=== PATIENT | male | born 1955 | race Caucasian/White ===

== ENCOUNTER → 2018-05-15 07:00 | Outpatient (CLI) | payer OTHER, SELFPAY ==
[2018-05-15 07:41] LABS: Add Manual Diff / Slide Review NO; Eosinophils Percent Auto 4.8 % (2-4); Hematocrit 43.8 % (41-53); Lymphocytes Percent Auto 41.8 % (25-40); Mean Corpuscular HGB Conc 34.2 % (30-36); Mean Corpuscular Hemoglobin 30.2 PG (26-34); Mean Corpuscular Volume 88.3 fL (80-100); Neutrophils Absolute Auto 1800 /uL (3000-5900); Neutrophils Percent Auto 39.4 % (50-75); Platelet Count 145 X10^3/uL (150-400); Red Blood Cell Count 4.96 X10^6/uL (4.5-5.9); White Blood Cell Count 4.5 X10^3/uL (4.5-11.0)
[2018-05-15 07:53] LABS: Hemoglobin A1C% w Est Avg Glu 5.9 % (4.0-6.0)
[2018-05-15 07:57] LABS: Alanine Aminotransferase 32 IU/L (21-72); Albumin 4.3 g/dL (3.5-5.0); Albumin Globulin Ratio 1.5 (1.0-2.8); Alkaline Phosphatase 83 U/L (38-126); Aspartate Aminotransferase 25 IU/L (17-59); Bilirubin Total 0.8 mg/dL (0.2-1.3); Blood Urea Nitrogen 21 mg/dL (9-20); Calcium 9.4 mg/dL (8.4-10.2); Carbon Dioxide 26 mmol/L (22-32); Chloride 105 mmol/L (98-107); Cholesterol 155 mg/dL (140-199); Estimated Glomerular Filt Rate > 60.0 mL/min (>60); Globulin 2.9 g/dL (1.7-4.1); Glucose 105 mg/dL (80-110); HDL Cholesterol 30 mg/dL (40-60); HEMOLYSIS < 15 (0-50); LDL Cholesterol Calculated 81 mg/dL (<100); Potassium 4.1 mmol/L (3.4-5.1); Sodium 141 mmol/L (137-145); Total Protein 7.2 g/dL (6.3-8.2); Triglycerides 221 mg/dL (35-150)
[2018-05-15 08:25] LABS: Prostate Specific Antigen Scrn 0.648 ng/mL (0.1-4.0)
[2018-05-15 08:46] LABS: Creatinine Urine Random 106.8 mg/dL
[2018-05-15 08:53] LABS: Microalbumi Creatinin Ratio Ur 26.2 ug/mg CR (<30); Microalbumin Urine Random 2.8 mg/dL (0-1.6)
== END ==
PROVIDERS: Family Provider Internal Medicine; PCP Internal Medicine; Visit Provider Internal Medicine
DX: E78.5 Hyperlipidemia, unspecified (principal); E11.9 Type 2 diabetes mellitus without complications; I10 Essential (primary) hypertension; Z12.5 Encounter for screening for malignant neoplasm of prostate
CPT/HCPCS: 36415; 80053; 80061; 82043; 82570; 83036; 85025; G0103

== ENCOUNTER → 2018-06-19 06:58 | Outpatient (CLI) | payer OTHER, SELFPAY ==
--- NOTE | 2018-06-19 | DI.RAD.S_ITS ---
PROCEDURE: XR CHEST 2V INDICATIONS: pneumothorax (TINY) TECHNIQUE: 2 views of the chest were acquired. COMPARISON: [facility], , CHEST 2 VIEW, 07/30/2013, 9:51. FINDINGS: Surgical changes and devices: Permanent pacemaker has been revised since prior study. Lungs and pleura: No pleural effusions. Extremely small left apical pneumothorax. Expiratory film with expected bibasilar atelectasis. Mediastinum: Mediastinal contours are normal. Heart size is normal. Bones and chest wall: No suspicious bony abnormalities. Soft tissues appear unremarkable. IMPRESSION: 1.. Minimal left apical pneumothorax post pacemaker revision 2. Intentional expiratory image with bibasilar atelectasis Dictated by: New Saldivar M.D. on 06/19/2018 at 7:58 Approved by: New Saldivar M.D. on 06/19/2018 at 8:02
== END ==
PROVIDERS: Family Provider Internal Medicine; PCP Internal Medicine; Visit Provider Internal Medicine Cardiovascular Disease
DX: J93.9 Pneumothorax, unspecified (principal); J98.11 Atelectasis; Z95.0 Presence of cardiac pacemaker
CPT/HCPCS: 71046

== ENCOUNTER → 2018-08-01 14:00 | Outpatient (CLI) | payer OTHER, SELFPAY | PROVIDERS: Family Provider Internal Medicine; PCP Internal Medicine | DX: Z23 Encounter for immunization (principal) | CPT/HCPCS: 90471; 90686 ==

== ENCOUNTER → 2019-06-06 07:41 | Outpatient (CLI) | payer OTHER, SELFPAY ==
[2019-06-06 09:16] LABS: Hemoglobin A1C% w Est Avg Glu 6.2 % (4.0-6.0)
[2019-06-06 09:26] LABS: Microalbumi Creatinin Ratio Ur 31.6 ug/mg CR (<30); Microalbumin Urine Random 4.4 mg/dL (0-1.6)
[2019-06-06 09:33] LABS: Alanine Aminotransferase 31 IU/L (21-72); Albumin 4.2 g/dL (3.5-5.0); Albumin Globulin Ratio 1.6 (1.0-2.8); Alkaline Phosphatase 78 U/L (38-126); Aspartate Aminotransferase 24 IU/L (17-59); BUN Creatinine Ratio 28.6 (6-22); Bilirubin Total 0.9 mg/dL (0.2-1.3); Blood Urea Nitrogen 20 mg/dL (9-20); Calcium 9.4 mg/dL (8.4-10.2); Carbon Dioxide 25 mmol/L (22-32); Chloride 105 mmol/L (98-107); Cholesterol 169 mg/dL (140-199); Estimated Glomerular Filt Rate > 60.0 mL/min (>60); Globulin 2.7 g/dL (1.7-4.1); Glucose 119 mg/dL (80-110); HDL Cholesterol 30 mg/dL (40-60); HEMOLYSIS 18 (0-50); LDL Cholesterol Calculated 86 mg/dL (<100); Potassium 4.6 mmol/L (3.4-5.1); Sodium 139 mmol/L (137-145); Total Protein 6.9 g/dL (6.3-8.2); Triglycerides 267 mg/dL (35-150)
== END ==
PROVIDERS: PCP Internal Medicine; Visit Provider Internal Medicine
DX: E11.9 Type 2 diabetes mellitus without complications (principal); E78.5 Hyperlipidemia, unspecified; I10 Essential (primary) hypertension
CPT/HCPCS: 36415; 80053; 80061; 82043; 82570; 83036

== ENCOUNTER → 2019-08-20 18:48 | Outpatient (CLI) | payer OTHER, SELFPAY | PROVIDERS: PCP Internal Medicine | DX: Z23 Encounter for immunization (principal) | CPT/HCPCS: 90471; 90686 ==

== ENCOUNTER 2020-04-15 07:45 | Emergency (ER) | payer OTHER, SELFPAY ==
--- NOTE | 2020-04-15 07:52 | ED.GENADULT ---
HPI - General Adult General Chief complaint: Dizziness Stated complaint: Nausea & Dizziness Time Seen by Provider: 04/15/20 07:48 Source: patient Mode of arrival: EMS Limitations: no limitations History of Present Illness HPI narrative: Patient is a 64-year-old male. Has a a [employer] pacemaker in place for atrial fibrillation. Is on Coumadin. Here for evaluation of an episode this morning where he states that he woke up and very shortly afterwards had episode of what he describes as vertigo. He states the room was spinning. Was not having any other associated symptoms except for nausea. It did 1st occurred when he was lying in bed. Difficult time standing upper even moving. At the time of my evaluation here in the emergency department he states the symptoms have improved however not completely resolved. He has had vertigo in the past. He states that he had an episode of this when he was 1st diagnosed with his heart condition. EKG from EMS shows sinus rhythm without any ectopy. No interventions by EMS prior to arrival. Related Data Home Medications Medication Instructions Recorded Confirmed aspirin 81 mg PO QDAY #0 12/10/11 11/10/19 carvedilol phosphate [Coreg CR] 12.5 mg PO BID #0 12/10/11 11/10/19 VITAMIN D (Vitamin D3) 1,000 unit PO QDAY #0 02/14/13 11/10/19 pravastatin [Pravachol] 20 mg PO HS #0 02/14/13 11/10/19 ranitidine HCl [Zantac] 150 mg PO QDAY #0 tab 07/30/13 11/10/19 losartan 50 mg tablet 50 mg PO .qhs tab 11/10/19 11/10/19 warfarin 2.5 mg tablet 2.5 mg PO .COMPLEX 11/10/19 11/10/19 Previous Rx's Medication Instructions Recorded meclizine 25 mg PO TID PRN #14 tab 04/15/20 Allergies Allergy/AdvReac Type Severity Reaction Status Date / Time dabigatran etexilate Allergy Unknown Verified 04/15/20 08:02 [From PRADAXA] etomidate [ETOMIDATE] Allergy Unknown Verified 04/15/20 08:02 rivaroxaban [From XARELTO] Allergy Unknown Verified 04/15/20 08:02 hydrocodone [HYDROCODONE] AdvReac Mild VOMITING Verified 06/05/20 08:02 lisinopril [LISINOPRIL] AdvReac Mild COUGH Verified 04/15/20 08:02 Review of Systems Constitutional Constitutional: Denies fever(s) and Denies headache(s) Eyes Eyes: Denies change in vision ENT Ears, Nose, Mouth, and Throat: Reports vertigo, Reports dizziness, Denies headache(s), Reports disequilibrium, Denies sinus pain and Denies sore throat Cardiovascular Cardiovascular: Denies chest pain Respiratory Respiratory: Denies cough Gastrointestinal Gastrointestinal: Denies abdominal pain, Denies change in bowel habits, Denies diarrhea and Reports nausea Musculoskeletal Musculoskeletal: Denies tingling Comments: Left calf cramping Integumentary/Breasts Skin/Breast: Denies rash Neurologic Neurologic: Denies abnormal speech, Denies confusion, Reports vertigo, Reports dizziness, Denies headache(s), Denies tingling and Reports disequilibrium Psychiatric Psychiatric: Denies confusion Hematologic/Lymphatic Comments: On Coumadin Patient History Medical History Anticoagulated on Coumadin (Acute) Atrial fibrillation (Acute) Pacemaker (Acute) Social History Smoking Status: Former smoker Exam Initial Vital Signs Initial Vital Signs: Vital Signs Temperature 98.3 F 04/15/20 07:53 Pulse Rate 76 04/15/20 07:53 Respiratory Rate 18 04/15/20 07:53 Blood Pressure 168/90 H 04/15/20 07:53 Pulse Oximetry 98 04/15/20 07:53 Const General: cooperative, comfortable, well developed and well groomed Limitations: mental status not altered [facility] Head: normal to inspection and normocephalic Ears: TM's normal bilaterally Nose: external nose normal Eyes Pupils: PERRL EOM: EOM intact bilaterally Resp Effort & Inspection: normal respiratory effort Auscultation: clear to auscultation bilaterally Cardio Rate: regular rate Rhythm: regular rhythm GI Inspection: non-distended Skin Lesions: no lesions Rashes: no rashes Neuro General: patient alert, patient awake and patient oriented x3 Cranial Nerves: CN's II-XI intact bilaterally Cognition: normal cognition Speech: speech normal Sensory Exam: no sensory deficits noted Extrem General: normal to inspection and capillary refill normal Other: Muscle fullness felt left lateral calf when he describes a cramping sensation consistent with muscle spasm Psych Appearance: grossly normal and well kempt Scores GCS [place] coma scale eye opening: Spontaneous [place] coma scale verbal response: Orientated [place] coma scale motor response: Obey commands [place] coma scale total score: 15 Course Orders Ordered: ED Orders 04/15/20 07:46 EKG-12 Lead Stat 04/15/20 08:00 Complete Blood Count AUTO DIFF Stat Comprehensive Metabolic Panel Stat Lipase Stat Partial Thromboplastin Time Stat Prothrombin Time INR Stat Discontinued Medications Diazepam (Valium) 5 mg IV NOW ONE Stop: 04/15/20 08:07 Last Admin: 04/15/20 08:12 Dose: 2.5 mg Documented by: GRECIA Vital Signs Vital signs: Vital Signs - 8 hr 04/15/20 07:53 04/15/20 09:02 04/15/20 10:13 Temperature 98.3 F Pulse Rate 76 66 74 Respiratory Rate 18 14 14 Blood Pressure 168/90 H Blood Pressure [Left Arm] 143/86 H 147/75 H Pulse Oximetry 98 97 96 04/15/20 11:16 Temperature Pulse Rate 78 Respiratory Rate 14 Blood Pressure Blood Pressure [Left Arm] 147/91 H Pulse Oximetry 97 Medical Decision Making Medical Records Medical records reviewed: Yes I reviewed the patient's medical records. Lab Data Lab results reviewed: Yes I reviewed the patient's lab results. Result diagrams: 04/15/20 08:00 04/15/20 08:00 Labs: Lab Results 04/15/20 04/15/20 04/15/20 Range/Units 08:00 08:00 08:00 WBC 4.4 L (4.5-11.0) X10^3/uL RBC 4.94 (4.5-5.9) X10^6/uL Hgb 15.8 (13.5-17.5) g/dL Hct 44.4 (41-53) % MCV 90.0 (80-100) fL MCH 32.0 (26-34) PG MCHC 35.6 (30-36) % RDW 13.3 (11.6-14.8) % Plt Count 149 L (150-400) X10^3/uL Neut % (Auto) 44.2 L (50-75) % Lymph % (Auto) 33.3 (25-40) % [place] % (Auto) 18.7 H (3-14) % Eos % (Auto) 3.0 (2-4) % Baso % (Auto) 0.8 (0-2) % Neut # (Auto) 1900 (2549-1861) /uL Lymph # (Auto) 1500 (8079-2111) /uL [place] # (Auto) 800 (0-900) /uL Eos # (Auto) 100 (0-450) /uL Baso # (Auto) 0 (0-100) /uL PT 23.9 H (10.1-12.7) SECONDS INR 2.1 H (0.9-1.3) APTT 42 H (26.4-36.2) SECONDS Sodium 138 (137-145) mmol/L Potassium 4.2 (3.4-5.1) mmol/L Chloride 105 (98-107) mmol/L Carbon Dioxide 26 (22-32) mmol/L BUN 18 (9-20) mg/dL Creatinine 0.73 (0.66-1.25) mg/dL Estimated GFR > 60.0 (>60) mL/min BUN/Creatinine Ratio 24.7 H (6-22) Glucose 172 H (80-110) mg/dL Calcium 9.4 (8.4-10.2) mg/dL Total Bilirubin 0.6 (0.2-1.3) mg/dL AST 28 (17-59) IU/L ALT 33 (<50) IU/L Alkaline Phosphatase 111 (38-126) U/L Total Protein 7.4 (6.3-8.2) g/dL Albumin 4.4 (3.5-5.0) g/dL Globulin 3.0 (1.7-4.1) g/dL Albumin/Globulin Ratio 1.5 (1.0-2.8) Lipase 92 (23-300) U/L ECG Data Attestation: I personally reviewed and interpreted this ECG as follows: Prior ECG tracings: not available for review Interpretation: Ventricularly paced Rate is [address] T-wave changes consistent with ST-elevation [place] on MDM Narrative Medical decision making narrative: Patient had a normal neurologic exam other than a reproduction of his vertigo symptoms upon moving his head. Interrogation of his pacemaker shows no events today. I have low suspicion this is a cardiac event. I also have low suspicion that this is a CVA/TIA. Suspect peripheral vertigo. He improved after Valium. Was able to ambulate to the bathroom. Will have him follow-up with his primary provider. Will provide a prescription for meclizine for symptom treatment. He was given return precautions and follow-up instructions. He expressed understanding and agreement. Discharge Plan Departure Patient Disposition: Home Clinical Impression: Vertigo Instructions: DI for Vertigo Activity Restrictions/Additional Instructions: Recommend that you talk with your primary provider about further workup like we discussed. Take the medications as directed. Return to the emergency department for any new or worsening symptoms Prescriptions: New meclizine 25 mg tablet 25 mg PO TID PRN (Reason: dizziness or vertigo) Qty: 14 RF: 0 No Action losartan 50 mg tablet 50 mg PO .qhs RF: 0 warfarin [Coumadin] 2.5 mg tablet 2.5 mg PO .COMPLEX RF: 0 aspirin 81 MG tablet,delayed release (DR/EC) 81 mg PO QDAY Qty: 0 RF: 0 carvedilol phosphate [Coreg CR] 20 MG capsule, ER multiphase 24 hr 12.5 mg PO BID Qty: 0 RF: 0 pravastatin [Pravachol] 20 MG tablet 20 mg PO HS Qty: 0 RF: 0 VITAMIN D (Vitamin D3) 1,000 unit PO QDAY Qty: 0 RF: 0 ranitidine HCl [Zantac] 150 MG tablet 150 mg PO QDAY Qty: 0 RF: 0 Referrals: Jerson Stern MD [Primary Care Provider] -
[2020-04-15 07:53] VITALS: BP 168/90; PULSE 76; RESP 18; TEMP 36.8; O2SAT 98; BMI 27.7
[2020-04-15 08:07] LABS: Add Manual Diff / Slide Review NO; Basophils Absolute Auto 0 /uL (0-100); Basophils Percent Auto 0.8 % (0-2); Eosinophils Absolute Auto 100 /uL (0-450); Hematocrit 44.4 % (41-53); Hemoglobin 15.8 g/dL (13.5-17.5); Lymphocytes Absolute Auto 1500 /uL (1100-4500); Lymphocytes Percent Auto 33.3 % (25-40); Mean Corpuscular HGB Conc 35.6 % (30-36); Monocytes Absolute Auto 800 /uL (0-900); Monocytes Percent Auto 18.7 % (3-14); Neutrophils Absolute Auto 1900 /uL (1500-7000); Neutrophils Percent Auto 44.2 % (50-75); Platelet Count 149 X10^3/uL (150-400); Red Blood Cell Count 4.94 X10^6/uL (4.5-5.9); Red Cell Distribution Width 13.3 % (11.6-14.8); White Blood Cell Count 4.4 X10^3/uL (4.5-11.0)
[2020-04-15] MEDS: diazePAM 10 MG/2 ML SYRINGE 5 MG IV (08:12)
[2020-04-15 08:15] LABS: INR 2.1 (0.9-1.3); Prothrombin Time 23.9 SECONDS (10.1-12.7)
[2020-04-15 08:17] LABS: PTT Partial Thromboplastin Tim 42 SECONDS (26.4-36.2)
[2020-04-15 08:19] LABS: Alanine Aminotransferase 33 IU/L (<50); Albumin 4.4 g/dL (3.5-5.0); Albumin Globulin Ratio 1.5 (1.0-2.8); Alkaline Phosphatase 111 U/L (38-126); Aspartate Aminotransferase 28 IU/L (17-59); BUN Creatinine Ratio 24.7 (6-22); Bilirubin Total 0.6 mg/dL (0.2-1.3); Blood Urea Nitrogen 18 mg/dL (9-20); Calcium 9.4 mg/dL (8.4-10.2); Carbon Dioxide 26 mmol/L (22-32); Chloride 105 mmol/L (98-107); Estimated Glomerular Filt Rate > 60.0 mL/min (>60); Glucose 172 mg/dL (80-110); HEMOLYSIS < 15 (0-50); Lipase 92 U/L (23-300); Potassium 4.2 mmol/L (3.4-5.1); Sodium 138 mmol/L (137-145); Total Protein 7.4 g/dL (6.3-8.2)
--- NOTE | 2020-04-15 08:39 | PC.NURSE ---
patient reports vertigo and nausea subsiding. Valium appears to be taking effect. Patient states he just wants to sleep for a day.
[2020-04-15 09:02] VITALS: BP 143/86; PULSE 66; RESP 14; O2SAT 97
[2020-04-15 10:13] VITALS: BP 147/75; PULSE 74; RESP 14; O2SAT 96
[2020-04-15 11:16] VITALS: BP 147/91; PULSE 78; RESP 14; O2SAT 97
--- NOTE | 2020-04-15 11:26 | PC.NURSE ---
patient up to restroom after [employer] performed ambulation trial. Patient ambulating with steady gate. Patient walked over to me to verbalize ear symptoms he has had on and off for 6 months. He states there has been a popping noise in his right ear. Provider notified and acknowledged information.
[2020-04-15 11:45] VITALS: BP 151/85; PULSE 73; RESP 12; O2SAT 99
[2020-04-15 11:49] VITALS: BP 177/95; PULSE 79; RESP 17; O2SAT 96
--- NOTE | 2020-04-15 12:22 | PC.NURSE ---
additional vitals labeled with patient sticker and placed in chart.
== END 2020-04-15 12:25 | disposition home or self-care (01) ==
PROVIDERS: Emergency Provider Emergency Medicine; PCP Internal Medicine
DX: R42 Dizziness and giddiness (principal); R11.0 Nausea; I48.91 Unspecified atrial fibrillation; Z95.0 Presence of cardiac pacemaker; Z79.01 Long term (current) use of anticoagulants
CPT/HCPCS: 36415; 80053; 83690; 85025; 85610; 85730; 93005; 93010; 96374; 99284; J3360

== ENCOUNTER → 2020-08-16 | Outpatient (CLI) | payer OTHER, SELFPAY | PROVIDERS: PCP Internal Medicine; Referring Provider Internal Medicine; Visit Provider Internal Medicine | DX: Z23 Encounter for immunization (principal) | CPT/HCPCS: 90471; 90662 ==

== ENCOUNTER → 2020-11-16 08:38 | Outpatient (CLI) | payer OTHER, SELFPAY ==
[2020-11-16] MEDS: COVID-19 VACC(MODERNA-1)/PF 100 MCG/0.5 ML VIAL IM (08:43)
== END ==
PROVIDERS: PCP Internal Medicine; Visit Provider Internal Medicine
DX: Z23 Encounter for immunization (principal)
CPT/HCPCS: 0011A; 91301

== ENCOUNTER → 2020-12-14 08:08 | Outpatient (CLI) | payer OTHER, SELFPAY ==
[2020-12-14] MEDS: COVID-19 VACC #2, MRNA(MOD) 100 MCG/0.5 ML VIAL IM (08:16)
== END ==
PROVIDERS: PCP Internal Medicine; Visit Provider Internal Medicine
DX: Z23 Encounter for immunization (principal)
CPT/HCPCS: 0012A; 91301

== ENCOUNTER → 2021-01-25 10:50 | Outpatient (CLI) | payer OTHER, SELFPAY ==
[2021-01-25 11:59] LABS: COVID19 -Nasal RAPID Negative (Negative)
== END ==
PROVIDERS: PCP Internal Medicine; Visit Provider Family Medicine Sleep Medicine
DX: Z20.822 Contact with and (suspected) exposure to COVID-19 (principal); G47.33 Obstructive sleep apnea (adult) (pediatric)
CPT/HCPCS: 87635; 95810

== ENCOUNTER 2021-03-08 15:46 | Emergency (ER) | payer OTHER, SELFPAY ==
[2021-03-08 16:00] VITALS: BP 172/99; PULSE 83; RESP 16; TEMP 36.1; O2SAT 97; BMI 26.3
--- NOTE | 2021-03-08 16:11 | ED.HEATRA ---
HPI - Head Injury General Chief complaint: Head Injury Stated complaint: split lip, states INR 1.5 Time Seen by Provider: 03/08/21 16:00 Source: patient Mode of arrival: Ambulatory Limitations: no limitations History of Present Illness HPI Narrative: 65-year-old male nonsmoker with history of hypertension and atrial fibrillation on Coumadin presents with a chief complaint of an accidental face injury. Patient was working on an old vehicle at home and had taken and the lara off, when leaning down his face struck the exposed brackets and hinge to support the lara. He did not suffer any rapid deceleration or significant force to his head to suggest he is at risk for intracranial hemorrhage. He denies any loss of consciousness, nausea or vomiting. He denies any blurred vision, numbness or tingling. He has no neck or back pain. He has got a superficial abrasion just lateral to the left side of his nose and a deep laceration at the corner of his mouth. He is otherwise well and free of complaint. His tetanus will need to be updated MD Complaint: other Onset (ago): minute(s) Mechanism of Injury: other Place: home Loss of Consciousness: no Location of injury: face Severity: mild Radiation: none Other Injuries: none Context: on warfarin Associated symptoms: denies other symptoms Related Data Home Medications Medication Instructions Recorded Confirmed aspirin 81 mg PO QDAY #0 12/10/11 12/01/20 carvedilol phosphate [Coreg CR] 12.5 mg PO BID #0 12/10/11 12/01/20 VITAMIN D (Vitamin D3) 1,000 unit PO QDAY #0 02/14/13 11/10/19 pravastatin [Pravachol] 20 mg PO HS #0 02/14/13 12/01/20 losartan 50 mg tablet 50 mg PO .qhs tab 11/10/19 12/01/20 warfarin 2.5 mg tablet 2.5 mg PO .COMPLEX 11/10/19 12/01/20 acetaminophen 325 mg capsule 325 mg PO ONCE PRN 12/01/20 12/01/20 blood sugar diagnostic #10 ea 12/01/20 12/01/20 blood-glucose meter #1 ea 12/01/20 12/01/20 famotidine 20 mg tablet 20 mg PO BID 12/01/20 12/01/20 omega-3 fatty acids 1,000 mg 1,000 mg PO DAILY 12/01/20 12/01/20 capsule Previous Rx's Medication Instructions Recorded meclizine 25 mg PO TID PRN #14 tab 04/15/20 amoxicillin-pot clavulanate 1 tab PO BID #20 tab 03/08/21 [Augmentin] Allergies Allergy/AdvReac Type Severity Reaction Status Date / Time adhesive tape Allergy Mild Verified 03/08/21 16:00 ibuprofen Allergy Mild Verified 03/08/21 16:00 simvastatin [From Zocor] Allergy Mild Verified 03/08/21 16:00 dabigatran etexilate Allergy Unknown Verified 03/08/21 16:00 [From PRADAXA] etomidate [ETOMIDATE] Allergy Unknown Verified 03/08/21 16:00 rivaroxaban [From XARELTO] Allergy Unknown Verified 03/08/21 16:00 hydrocodone [HYDROCODONE] AdvReac Mild VOMITING Verified 03/08/21 16:00 lisinopril [LISINOPRIL] AdvReac Mild COUGH Verified 03/08/21 16:00 Review of Systems Constitutional Constitutional: Denies chills, Denies fatigue, Denies fever(s), Denies frequent falls, Denies lethargy and Denies weakness Eyes Eyes: Denies change in vision, Denies eye discharge, Denies irritation and Denies loss of vision ENT Ears, Nose, Mouth, and Throat: Denies change in voice, Denies dizziness, Denies neck pain, Denies sore throat and Denies throat swelling Cardiovascular Cardiovascular: Denies chest pain, Denies irregular heart rhythm, Denies lightheadedness, Denies palpitations, Denies dyspnea, Denies dyspnea on exertion and Denies orthopnea Respiratory Respiratory: Denies cough, Denies dyspnea, Denies dyspnea on exertion and Denies wheezing Gastrointestinal Gastrointestinal: Denies abdominal pain, Denies change in bowel habits, Denies diarrhea, Denies nausea and Denies vomiting Musculoskeletal Musculoskeletal: Denies neck pain and Denies numbness Integumentary/Breasts Skin/Breast: Denies pruritus, Denies erythema, Denies rash and Reports wounds Neurologic Neurologic: Denies behavioral changes, Denies confusion, Denies dizziness, Denies frequent falls, Denies loss of vision, Denies numbness and Denies weakness Psychiatric Psychiatric: Denies anxiety, Denies behavioral changes, Denies confusion, Denies depression, Denies homicidal ideation and Denies suicidal ideation Endocrine Endocrine: Denies fatigue, Denies flushing and Denies palpitations Hematologic/Lymphatic Hematologic/Lymphatic: Denies easy bruising Allergic/Immunologic Allergic/Immunologic: Denies urticaria, Denies throat swelling and Denies wheezing Patient History Medical History Anticoagulated on Coumadin Atrial fibrillation Pacemaker Family History Father Alcohol abuse Mother Restless leg Obesity Hypertension Heart disease Anxiety Family/Other Sleep apnea Restless leg Social History Smoking Status: Never smoker Smoking Status: Never smoker alcohol intake frequency: holidays/special occasions only Substance Use Type: does not use Exam Narrative Exam Narrative: GEN: AOx3 and in mild distress, GCS 15 HEAD: No pain, bruising or evidence of depressed skull fracture ENT: 1.5 cm laceration just lateral to the left corner of patient's mouth, near but not crossing the [place] border, no evidence of orbicularis involvement. No dental injury. Another laceration within the mouth just posterior and lateral to the upper molars noted with active bleeding. EYES: Pupils are equal, round, and reactive to light and accommodation. Extraoccular muscles are intact bilaterally. There is no subconjunctival hemorrhage or exudate. CHEST: Lungs are clear to auscultation bilaterally and free of wheezes, rales, or rhonchi. Heart rate is regular rhythm, there are no murmurs, clicks, rubs, or gallops. There is no chest wall tenderness. ABD: Abdomen is soft and nontender. There is no guarding or rebound. Bowel sounds are normal in all 4 quadrants. There is no mass or organomegaly. EXT: Full painless ROM of all extremities with no loss of sensation or strength. SKIN: Warm, pink, and dry. No erythema or rash Initial Vital Signs Initial Vital Signs: Vital Signs Temperature 96.9 F L 03/08/21 16:00 Pulse Rate 83 03/08/21 16:00 Respiratory Rate 16 03/08/21 16:00 Blood Pressure 172/99 H 03/08/21 16:00 Pulse Oximetry 97 03/08/21 16:00 Procedures Laceration Repair Laceration 1: Site: face Side (If applicable): left Size (cm): 1.5 Description: linear and clean Depth: simple, single layer Local Anesthetic: lidocaine 1% and with bicarb Amount of anesthesia used (mL): 2 Pre-repair: wound explored Skin layer closed with: nylon Size (cm): 6-0 Number of sutures: 4 Technique: simple, interrupted Subcutaneous layer closed with: vicryl Size: 5-0 Number of sutures: 1 Laceration 2: Site: other Side (If applicable): left Size (cm): 0.5 Description: linear Depth: simple, single layer Pre-repair: wound explored Skin layer closed with: vicryl Size (cm): 5-0 Number of sutures: 2 Technique: simple, interrupted Course Orders Ordered: Discontinued Medications Diphtheria/Tetanus/Acell Pertussis (Tet,Diph,Pertuss(Acell),Vac/Pf 0.5 Ml Syringe) 0.5 ml IM .ONCE ONE Stop: 03/08/21 16:40 Last Admin: 03/08/21 16:50 Dose: 0.5 ml Documented by: Lidocaine/Sodium Bicarbonate (Lido 1%/Sod Bicarb 8.4% (10ml) 10 Ml Syringe) 10 ml INJ NOW ONE Stop: 03/08/21 16:40 Last Admin: 03/08/21 16:53 Dose: 10 ml Documented by: Vital Signs Vital signs: Vital Signs - 8 hr 03/08/21 16:00 Temperature 96.9 F L Pulse Rate 83 Respiratory Rate 16 Blood Pressure 172/99 H Pulse Oximetry 97 MDM - Head Injury MDM Narrative Medical decision making narrative: Patient A&O x3, GCS 15, facial injury without significant force, head injury considered but thought unlikely. Discussed head CT with patient and we both sure the opinion that the mechanism is not sufficient to cause intracranial injury. Her blood pressure for this reason, CT avoided. He does have complex is laceration us near but not crossing the [place]mil[place] border and without now he evidence of muscle involvement. An intraoral injury has been repaired in hemostasis achieved. Extensive discussion regarding return precautions including also the potential of antibiotics to alter his INR in caused bleeding risk. Patient and have had questions answered to their apparent satisfaction and agree with and understand the plan Discharge Plan Departure Patient Disposition: Home Clinical Impression: Complex laceration of circumoral region of face Instructions: DI for Laceration Repair -- Complex Activity Restrictions/Additional Instructions: *You have been diagnosed with [complex circumoral laceration with intraoral involvement. He had 4 sutures placed in her lip and 2 dissolving sutures on the inside.] *What to do: *Take medications as directed. As we discussed, please hold your coumadin tonight and contact the coumadin clinic tomorrow as antibiotics run the risk of increasing your bleeding risk. * Please keep the wound clean and dry to the best of your ability. Please monitor for signs of infection such as redness to the skin or increasing pain. Have the sutures removed by your doctor in about 7 days. If you are unable to get into your doctor, we would be happy to remove the sutures in that same timeframe. *Return to ER if you should have any new, worsening or concerning symptoms, such as [ bleeding, pain, swelling, numbness, tingling, or other bothersome symptoms] Prescriptions: New amoxicillin-pot clavulanate [Augmentin] 875-125 mg tablet 1 tab PO BID Qty: 20 RF: 0 No Action losartan 50 mg tablet 50 mg PO .qhs RF: 0 warfarin [Coumadin] 2.5 mg tablet 2.5 mg PO .COMPLEX RF: 0 aspirin 81 MG tablet,delayed release (DR/EC) 81 mg PO QDAY Qty: 0 RF: 0 carvedilol phosphate [Coreg CR] 20 MG capsule, ER multiphase 24 hr 12.5 mg PO BID Qty: 0 RF: 0 pravastatin [Pravachol] 20 MG tablet 20 mg PO HS Qty: 0 RF: 0 VITAMIN D (Vitamin D3) 1,000 unit PO QDAY Qty: 0 RF: 0 meclizine 25 mg tablet 25 mg PO TID PRN (Reason: dizziness or vertigo) Qty: 14 RF: 0 acetaminophen 325 mg capsule 325 mg PO ONCE PRNRF: 0 (DME) blood-glucose meter [OneTouch Verio Flex meter] Misc See Rx Instructions .ROUTE .MEDSUPPLY Qty: 1 RF: 0 (DME) OneTouch Ultra Blue Test Strip Strip See Rx Instructions .ROUTE .MEDSUPPLY Qty: 10 RF: 0 famotidine 20 mg tablet 20 mg PO BID RF: 0 omega-3 fatty acids 1,000 mg capsule 1,000 mg PO DAILY RF: 0 Referrals: Jerson Stern MD [Primary Care Provider] -
[2021-03-08] MEDS: TET,DIPH,PERTUSS(ACELL),VAC/PF 0.5 ML SYRINGE IM (16:50)
[2021-03-08] MEDS: LIDO 1%/SOD BICARB 8.4% (10ML) 10 ML SYRINGE INJ (16:53)
--- NOTE | 2021-03-08 16:54 | PC.NURSE ---
Dr. Charlton at bedside for lidocaine administration and lac repair
[2021-03-08 17:45] VITALS: BP 143/82; PULSE 70; RESP 16; O2SAT 99
== END 2021-03-08 17:45 | disposition home or self-care (01) ==
PROVIDERS: Emergency Provider Emergency Medicine; PCP Internal Medicine
DX: S01.81XA Laceration without foreign body of other part of head, initial encounter (principal); W26.8XXA Contact with other sharp object(s), not elsewhere classified, initial encounter; Z23 Encounter for immunization
CPT/HCPCS: 12011; 90471; 99283; 90715

== ENCOUNTER → 2021-05-25 06:49 | Outpatient (CLI) | payer OTHER, SELFPAY ==
[2021-05-25 09:03] LABS: Hemoglobin A1C% w Est Avg Glu 6.7 % (4.0-6.0)
== END ==
PROVIDERS: PCP Internal Medicine; Referring Provider Internal Medicine; Visit Provider Internal Medicine
DX: E11.9 Type 2 diabetes mellitus without complications (principal)
CPT/HCPCS: 36415; 83036

== ENCOUNTER → 2021-07-13 10:49 | Outpatient (CLI) | payer OTHER, SELFPAY ==
[2021-07-13 12:00] LABS: BUN Creatinine Ratio 25.3 (6-22); Blood Urea Nitrogen 19 mg/dL (9-20); Calcium 9.3 mg/dL (8.4-10.2); Carbon Dioxide 25 mmol/L (22-32); Chloride 105 mmol/L (98-107); Estimated Glomerular Filt Rate > 60.0 mL/min (>60); Glucose 141 mg/dL (80-110); HEMOLYSIS 16 (0-50); Potassium 4.4 mmol/L (3.4-5.1); Sodium 138 mmol/L (137-145)
== END ==
PROVIDERS: PCP Internal Medicine; Referring Provider Internal Medicine Cardiovascular Disease; Visit Provider Internal Medicine Cardiovascular Disease
DX: I42.8 Other cardiomyopathies (principal); E11.9 Type 2 diabetes mellitus without complications
CPT/HCPCS: 36415; 80048; 83036

== ENCOUNTER → 2021-08-17 | Outpatient (CLI) | payer OTHER, SELFPAY | PROVIDERS: PCP Internal Medicine; Referring Provider Internal Medicine; Visit Provider Internal Medicine | DX: Z23 Encounter for immunization (principal) | CPT/HCPCS: 90471; 90662 ==

== ENCOUNTER → 2021-09-15 08:23 | Outpatient (CLI) | payer OTHER, SELFPAY ==
[2021-09-15] MEDS: COVID-19 VACC #3, MRNA(MOD) 50 MCG/0.25 ML VIAL IM (08:30)
== END ==
PROVIDERS: PCP Internal Medicine; Visit Provider Internal Medicine
DX: Z23 Encounter for immunization (principal)
CPT/HCPCS: 0013A; 91301

== ENCOUNTER → 2021-10-30 07:22 | Outpatient (CLI) | payer OTHER, SELFPAY ==
[2021-10-30 08:15] LABS: Cholesterol 179 mg/dL (140-199); HDL Cholesterol 34 mg/dL (40-60); LDL Cholesterol Calculated 106 mg/dL (<100); Triglycerides 195 mg/dL (35-150)
[2021-10-30 09:58] LABS: Creatinine Urine Random 170.5 mg/dL
[2021-10-30 10:03] LABS: Microalbumin Urine Random 8.2 mg/dL (0-1.6)
[2021-10-31 05:37] LABS: PSA, Total 0.6 ng/mL (0.0-4.0)
== END ==
PROVIDERS: PCP Internal Medicine; Referring Provider Internal Medicine; Visit Provider Internal Medicine
DX: E11.9 Type 2 diabetes mellitus without complications (principal); R35.0 Frequency of micturition
CPT/HCPCS: 36415; 80061; 82043; 82570; 84153; 84154

== ENCOUNTER 2022-03-20 12:38 | Emergency (ER) | payer OTHER, SELFPAY ==
[2022-03-20] VITALS (9 sets, daily range): BP systolic 123–136; BP diastolic 61–76; PULSE 90–98; RESP 18–24; TEMP 37.5; O2SAT 95–98; BMI 26.3
[2022-03-20 13:14] LABS: Alanine Aminotransferase 22 IU/L (<50); Albumin 4.6 g/dL (3.5-5.0); Albumin Globulin Ratio 1.4 (1.0-2.8); Alkaline Phosphatase 80 U/L (38-126); Aspartate Aminotransferase 25 IU/L (17-59); BUN Creatinine Ratio 20.9 (6-22); Bilirubin Total 1.7 mg/dL (0.2-1.3); Blood Urea Nitrogen 19 mg/dL (9-20); Calcium 9.2 mg/dL (8.4-10.2); Carbon Dioxide 27 mmol/L (22-32); Chloride 103 mmol/L (98-107); Estimated Glomerular Filt Rate > 60 mL/min (>60); Globulin 3.4 g/dL (1.7-4.1); Glucose 186 mg/dL (80-110); HEMOLYSIS 17 (0-50); Lipase 55 U/L (23-300); Potassium 3.7 mmol/L (3.4-5.1); Sodium 139 mmol/L (137-145)
[2022-03-20 13:15] LABS: Add Manual Diff / Slide Review NO; Basophils Absolute Auto 0 /uL (0-100); Basophils Percent Auto 0.2 % (0-2); Eosinophils Absolute Auto 0 /uL (0-450); Eosinophils Percent Auto 0.1 % (2-4); Hematocrit 43.7 % (41-53); Hemoglobin 14.6 g/dL (13.5-17.5); Lymphocytes Absolute Auto 900 /uL (1100-4500); Lymphocytes Percent Auto 5.9 % (25-40); Mean Corpuscular HGB Conc 33.3 % (30-36); Mean Corpuscular Hemoglobin 29.9 PG (26-34); Mean Corpuscular Volume 89.8 fL (80-100); Monocytes Absolute Auto 2900 /uL (0-900); Monocytes Percent Auto 19.4 % (3-14); Neutrophils Absolute Auto 11300 /uL (1500-7000); Neutrophils Percent Auto 74.4 % (50-75); Platelet Count 144 X10^3/uL (150-400); Red Blood Cell Count 4.87 X10^6/uL (4.5-5.9); Red Cell Distribution Width 14.1 % (11.6-14.8); White Blood Cell Count 15.2 X10^3/uL (4.5-11.0)
[2022-03-20 13:48] LABS: Bacteria Urine Moderate (10-30); Culture Indicated Urine Specimen Cultured; Ictotest Urine Negative (Negative); RBC Urine 5-10/HPF (0-5/HPF); Squamous Epithelial Cell Urine 1-5 /HPF (0-5/HPF); WBC Urine 30-100/HPF (0-5/HPF)
--- NOTE | 2022-03-20 13:50 | ED_ITS ---
HPI - Male Genitourinary <Jena Medrano [facility] - Last Filed: 03/20/22 15:55> General Chief complaint: Urogenital-Male Stated complaint: Urinary Symptoms Time Seen by Provider: 03/20/22 13:36 Source: patient and EMS Mode of arrival: EMS History of Present Illness HPI Narrative: This is a 66-year-old male with history of AFib on warfarin, currently V paced in sinus rhythm, diabetes type 2 with insulin dependence, hypertension, hyperlipidemia GERD, NIYA who presents to the emergency department by EMS for chief complaint of dysuria and pelvic pressure which he states started 2 nights ago. Patient states that today his pain was getting worse, felt fatigued, and he was having pelvic cramping. He denies a history of UTIs in the past, he states that his urine is alfred in color with an odor. Patient endorses fatigue, feeling poorly this morning his pain was shooting through his bladder, he states it felt like electrical pulses in his bladder. He states his urine gonsales when he voids, denies any testicular or rectal pain. Denies any swelling to his scrotum, abnormal discharge from his penis, or any new sexual contact. Related Data Home Medications Medication Instructions Recorded Confirmed aspirin 81 mg tablet,delayed 81 mg PO QDAY #0 12/10/11 12/01/20 release carvedilol phosphate 20 mg 12.5 mg PO BID #0 12/10/11 12/01/20 capsule,[id number] multiphase (Coreg CR) VITAMIN D (Vitamin D3) 1,000 unit PO QDAY #0 02/14/13 11/10/19 pravastatin 20 mg tablet 20 mg PO HS #0 02/14/13 12/01/20 (Pravachol) losartan 50 mg tablet 50 mg PO .qhs tab 11/10/19 12/01/20 warfarin 2.5 mg tablet (Coumadin) 2.5 mg PO .COMPLEX 11/10/19 12/01/20 acetaminophen 325 mg capsule 325 mg PO ONCE PRN 12/01/20 12/01/20 blood sugar diagnostic (OneTouch #10 ea 12/01/20 12/01/20 Ultra Blue Test Strip) blood-glucose meter (OneTouch #1 ea 12/01/20 12/01/20 Verio Flex meter) famotidine 20 mg tablet 20 mg PO BID 12/01/20 12/01/20 omega-3 fatty acids 1,000 mg 1,000 mg PO DAILY 12/01/20 12/01/20 capsule ResMed AirSense 10 Auto 01/10/22 01/10/22 Previous Rx's Medication Instructions Recorded meclizine 25 mg tablet 25 mg PO TID PRN #14 tab 04/15/20 phenazopyridine 100 mg tablet 100 mg PO TID PRN #7 tab 03/20/22 (Pyridium) sulfamethoxazole 800 1 tab PO BID 7 Days #14 tab 03/20/22 mg-trimethoprim 160 mg tablet Allergies Allergy/AdvReac Type Severity Reaction Status Date / Time adhesive tape Allergy Mild Verified 01/10/22 16:27 ibuprofen Allergy Mild Verified 01/10/22 16:27 simvastatin [From Zocor] Allergy Mild Verified 01/10/22 16:27 dabigatran etexilate Allergy Unknown Verified 01/10/22 16:27 [From PRADAXA] etomidate [ETOMIDATE] Allergy Unknown Verified 01/10/22 16:27 rivaroxaban [From XARELTO] Allergy Unknown Verified 01/10/22 16:27 hydrocodone [HYDROCODONE] AdvReac Mild VOMITING Verified 01/10/22 16:27 lisinopril [LISINOPRIL] AdvReac Mild COUGH Verified 01/10/22 16:27 Review of Systems <СЕРГЕЙ Dowd - Last Filed: 03/20/22 15:55> Review of Systems Narrative: General: denies fever, chills, malaise, sweats, fatigue Head/Neck: denies headache, neck pain, dizziness Eyes: denies visual changes, eye pain Cardio: denies chest pain, palpitations, edema Respiratory: denies dyspnea, cough GI: denies abdominal pain, nausea, vomiting, or diarrhea : Endorses dysuria with odor, alfred colored urine, denies urinary retention, or incontinence, endorses urinary frequency and urgency last night every 2 hours MSK: denies joint pain, muscle weakness Skin: denies rash, itching, skin lesions or other Neuro: denies numbness, tingling Patient History <СЕРГЕЙ Dowd - Last Filed: 03/20/22 15:55> Medical History Anticoagulated on Coumadin Atrial fibrillation Essential hypertension GERD (gastroesophageal reflux disease) 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 Hyperlipidemia Obstructive sleep apnea, adult Pacemaker Type 2 diabetes mellitus Family History Father Alcohol abuse Mother Restless leg Obesity Hypertension Heart disease Anxiety Family/Other Sleep apnea Restless leg Social History marital status: (to Linda) details: lives in [place] number of children: 2 (adult sons) household members: spouse lives independently: Yes housing: house education level: 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 General: Awake, alert, nontoxic, no cardiorespiratory distress Head/Neck: Atraumatic, neck full range of motion Eyes: EOMI, conjunctiva normal Nose: nares patent, no rhinorrhea Mouth/Throat: moist mucus membranes, no oral lesions Cardio: Regular rate and rhythm, V paced sinus rhythm without ectopy, S1-S2 without murmur, no peripheral edema, palpable radial pulse, 2+, warm extremities, no diaphoresis Respiratory: respirations unlabored without wheezing, stridor, or rales. No retractions or tachypnea GI: Abdomen soft, nontender to palpation, no CVA tenderness bilaterally MSK: Moves all extremities, neurovascularly intact Skin: Normal capillary refill, no rash Neuro: Normal speech and cognition, normal gait, alert and oriented x3, neuro exam without deficit Initial Vital Signs Initial Vital Signs: Vital Signs Temperature 99.5 F 03/20/22 12:40 Pulse Rate 92 H 03/20/22 12:40 Respiratory Rate 20 03/20/22 12:40 Blood Pressure 136/68 03/20/22 12:40 Pulse Oximetry 95 03/20/22 12:40 <Laura Das DO - Last Filed: 03/21/22 07:20> Initial Vital Signs Initial Vital Signs: Vital Signs Temperature 99.5 F 03/20/22 12:40 Pulse Rate 92 H 03/20/22 12:40 Respiratory Rate 20 03/20/22 12:40 Blood Pressure 136/68 03/20/22 12:40 Pulse Oximetry 95 03/20/22 12:40 Course <СЕРГЕЙ Dowd - Last Filed: 03/20/22 15:55> Orders Ordered: Discontinued Medications Acetaminophen (Acetaminophen 325 Mg Tablet) 975 mg PO NOW ONE Stop: 03/20/22 14:27 Last Admin: 03/20/22 15:53 Dose: Not Given Documented by: LUCITA Ceftriaxone Sodium 1,000 mg/ (Sodium Chloride) 100 mls @ 200 mls/hr IV NOW ONE Stop: 03/20/22 13:45 Last Infusion: 03/20/22 14:46 Dose: 0 mls/hr Documented by: Admin: 03/20/22 14:16 Dose: 200 mls/hr Documented by: LUCITA Sodium Chloride (Normal Saline 0.9%) 1,000 mls @ 1,000 mls/hr IV BOLUS ONE Stop: 03/20/22 14:51 Last Infusion: 03/20/22 16:04 Dose: 0 mls/hr Documented by: Admin: 03/20/22 14:16 Dose: 1,000 mls/hr Documented by: LUCITA Phenazopyridine HCl (Phenazopyridine 100 Mg Tablet) 100 mg PO NOW ONE Stop: 03/20/22 15:31 Last Admin: 03/20/22 15:53 Dose: Not Given Documented by: LUCITA Trimethoprim/Sulfamethoxazole (Trimeth/Sulfa 160/800 (Ds) Tablet) 1 tab PO NOW ONE Stop: 03/20/22 13:45 Last Admin: 03/20/22 14:22 Dose: Not Given Documented by: LUCITA Vital Signs Vital signs: Vital Signs - 8 hr 03/20/22 12:40 03/20/22 12:41 03/20/22 13:00 Temperature 99.5 F Pulse Rate 92 H 98 H 95 H Respiratory Rate 20 24 Blood Pressure 136/68 123/64 Pulse Oximetry 95 98 97 03/20/22 13:30 Temperature Pulse Rate 96 H Respiratory Rate 24 Blood Pressure 125/61 Pulse Oximetry 96 <Laura Das DO - Last Filed: 03/21/22 07:20> Orders Ordered: Discontinued Medications Acetaminophen (Acetaminophen 325 Mg Tablet) 975 mg PO NOW ONE Stop: 03/20/22 14:27 Last Admin: 03/20/22 15:53 Dose: Not Given Documented by: LUCITA Ceftriaxone Sodium 1,000 mg/ (Sodium Chloride) 100 mls @ 200 mls/hr IV NOW ONE Stop: 03/20/22 13:45 Last Infusion: 03/20/22 14:46 Dose: 0 mls/hr Documented by: Admin: 03/20/22 14:16 Dose: 200 mls/hr Documented by: LUCITA Sodium Chloride (Normal Saline 0.9%) 1,000 mls @ 1,000 mls/hr IV BOLUS ONE Stop: 03/20/22 14:51 Last Infusion: 03/20/22 16:04 Dose: 0 mls/hr Documented by: Admin: 03/20/22 14:16 Dose: 1,000 mls/hr Documented by: LUCITA Phenazopyridine HCl (Phenazopyridine 100 Mg Tablet) 100 mg PO NOW ONE Stop: 03/20/22 15:31 Last Admin: 03/20/22 15:53 Dose: Not Given Documented by: LUCITA Trimethoprim/Sulfamethoxazole (Trimeth/Sulfa 160/800 (Ds) Tablet) 1 tab PO NOW ONE Stop: 03/20/22 13:45 Last Admin: 03/20/22 14:22 Dose: Not Given Documented by: LUCITA Vital Signs Vital signs: Vital Signs - 8 hr 03/20/22 12:40 03/20/22 12:41 03/20/22 13:00 Temperature 99.5 F Pulse Rate 92 H 98 H 95 H Respiratory Rate 20 24 Blood Pressure 136/68 123/64 Pulse Oximetry 95 98 97 03/20/22 13:30 Temperature Pulse Rate 96 H Respiratory Rate 24 Blood Pressure 125/61 Pulse Oximetry 96 MDM - Male Genitourinary <СЕРГЕЙ Dowd - Last Filed: 03/20/22 15:55> Lab Data Result diagrams: 03/20/22 12:30 03/20/22 12:30 Labs: Lab Results 03/20/22 03/20/22 03/20/22 Range/Units 12:30 12:30 13:11 WBC 15.2 H (4.5-11.0) X10^3/uL RBC 4.87 (4.5-5.9) X10^6/uL Hgb 14.6 (13.5-17.5) g/dL Hct 43.7 (41-53) % MCV 89.8 (80-100) fL MCH 29.9 (26-34) PG MCHC 33.3 (30-36) % RDW 14.1 (11.6-14.8) % Plt Count 144 L (150-400) X10^3/uL Neut % (Auto) 74.4 (50-75) % Lymph % (Auto) 5.9 L (25-40) % Collier % (Auto) 19.4 H (3-14) % Eos % (Auto) 0.1 L (2-4) % Baso % (Auto) 0.2 (0-2) % Neut # (Auto) 13593 H (1443-8395) /uL Lymph # (Auto) 900 L (2288-6589) /uL Collier # (Auto) 2900 H (0-900) /uL Eos # (Auto) 0 (0-450) /uL Baso # (Auto) 0 (0-100) /uL Sodium 139 (137-145) mmol/L Potassium 3.7 (3.4-5.1) mmol/L Chloride 103 (98-107) mmol/L Carbon Dioxide 27 (22-32) mmol/L BUN 19 (9-20) mg/dL Creatinine 0.91 (0.66-1.25) mg/dL Estimated GFR > 60 (>60) mL/min BUN/Creatinine Ratio 20.9 (6-22) Glucose 186 H (80-110) mg/dL Lactate (0.7-2.1) mmol/L Calcium 9.2 (8.4-10.2) mg/dL Total Bilirubin 1.7 H (0.2-1.3) mg/dL AST 25 (17-59) IU/L ALT 22 (<50) IU/L Alkaline Phosphatase 80 (38-126) U/L Total Creatine Kinase 37 L (55-170) U/L CK-MB (CK-2) TNP CK-MB (CK-2) Rel Index TNP Troponin I < 0.012 (0.01-0.034) ng/mL Total Protein 8.0 (6.3-8.2) g/dL Albumin 4.6 (3.5-5.0) g/dL Globulin 3.4 (1.7-4.1) g/dL Albumin/Globulin Ratio 1.4 (1.0-2.8) Lipase 55 (23-300) U/L Procalcitonin 0.77 H (<0.5) ng/mL Ur Bilirubin Confirm (Negative) Urine RBC (0-5/HPF) Urine WBC (0-5/HPF) Ur Squamous Epith Cells (0-5/HPF) Urine Bacteria (None) Ur Culture Indicated? Ur Chlamydia DNA (PCR) N gonorrhoeae DNA (PCR) 03/20/22 03/20/22 03/20/22 Range/Units 13:11 13:14 13:14 WBC (4.5-11.0) X10^3/uL RBC (4.5-5.9) X10^6/uL Hgb (13.5-17.5) g/dL Hct (41-53) % MCV (80-100) fL MCH (26-34) PG MCHC (30-36) % RDW (11.6-14.8) % Plt Count (150-400) X10^3/uL Neut % (Auto) (50-75) % Lymph % (Auto) (25-40) % Collier % (Auto) (3-14) % Eos % (Auto) (2-4) % Baso % (Auto) (0-2) % Neut # (Auto) (4846-5756) /uL Lymph # (Auto) (5214-6247) /uL Collier # (Auto) (0-900) /uL Eos # (Auto) (0-450) /uL Baso # (Auto) (0-100) /uL Sodium (137-145) mmol/L Potassium (3.4-5.1) mmol/L Chloride (98-107) mmol/L Carbon Dioxide (22-32) mmol/L BUN (9-20) mg/dL Creatinine (0.66-1.25) mg/dL Estimated GFR (>60) mL/min BUN/Creatinine Ratio (6-22) Glucose (80-110) mg/dL Lactate 1.3 (0.7-2.1) mmol/L Calcium (8.4-10.2) mg/dL Total Bilirubin (0.2-1.3) mg/dL AST (17-59) IU/L ALT (<50) IU/L Alkaline Phosphatase (38-126) U/L Total Creatine Kinase (55-170) U/L CK-MB (CK-2) CK-MB (CK-2) Rel Index Troponin I (0.01-0.034) ng/mL Total Protein (6.3-8.2) g/dL Albumin (3.5-5.0) g/dL Globulin (1.7-4.1) g/dL Albumin/Globulin Ratio (1.0-2.8) Lipase (23-300) U/L Procalcitonin (<0.5) ng/mL Ur Bilirubin Confirm Negative (Negative) Urine RBC 5-10/hpf H (0-5/HPF) Urine WBC 30-100/hpf H (0-5/HPF) Ur Squamous Epith Cells 1-5 /hpf (0-5/HPF) Urine Bacteria Moderate (10-30) H (None) Ur Culture Indicated? Specimen cultured Ur Chlamydia DNA (PCR) N gonorrhoeae DNA (PCR) 03/20/22 Range/Units 13:14 WBC (4.5-11.0) X10^3/uL RBC (4.5-5.9) X10^6/uL Hgb (13.5-17.5) g/dL Hct (41-53) % MCV (80-100) fL MCH (26-34) PG MCHC (30-36) % RDW (11.6-14.8) % Plt Count (150-400) X10^3/uL Neut % (Auto) (50-75) % Lymph % (Auto) (25-40) % Collier % (Auto) (3-14) % Eos % (Auto) (2-4) % Baso % (Auto) (0-2) % Neut # (Auto) (3704-3259) /uL Lymph # (Auto) (3434-3905) /uL Collier # (Auto) (0-900) /uL Eos # (Auto) (0-450) /uL Baso # (Auto) (0-100) /uL Sodium (137-145) mmol/L Potassium (3.4-5.1) mmol/L Chloride (98-107) mmol/L Carbon Dioxide (22-32) mmol/L BUN (9-20) mg/dL Creatinine (0.66-1.25) mg/dL Estimated GFR (>60) mL/min BUN/Creatinine Ratio (6-22) Glucose (80-110) mg/dL Lactate (0.7-2.1) mmol/L Calcium (8.4-10.2) mg/dL Total Bilirubin (0.2-1.3) mg/dL AST (17-59) IU/L ALT (<50) IU/L Alkaline Phosphatase (38-126) U/L Total Creatine Kinase (55-170) U/L CK-MB (CK-2) CK-MB (CK-2) Rel Index Troponin I (0.01-0.034) ng/mL Total Protein (6.3-8.2) g/dL Albumin (3.5-5.0) g/dL Globulin (1.7-4.1) g/dL Albumin/Globulin Ratio (1.0-2.8) Lipase (23-300) U/L Procalcitonin (<0.5) ng/mL Ur Bilirubin Confirm (Negative) Urine RBC (0-5/HPF) Urine WBC (0-5/HPF) Ur Squamous Epith Cells (0-5/HPF) Urine Bacteria (None) Ur Culture Indicated? Ur Chlamydia DNA (PCR) Not detected N gonorrhoeae DNA (PCR) Not detected Urine Dip Bedside Urine Bilirubin + 1 Bedside Urine Ketone +/- 5 Urine Specific Molena 1.03 Bedside Urine Occult Blood +++ Bedside Urine pH 6 Bedside Urine Protein +/- 15 Bedside Urine Urobilinogen +/- 1mg Bedside Urine Nitrite + Positive Bedside Urine Leukocytes +/- 15 Esterase MDM Narrative Medical decision making narrative: This is a pleasant 66-year-old male with past medical history of diabetes type 2-insulin dependent, AFib on warfarin with pacemaker, V paced in sinus rhythm, NIYA, GERD, hypertension hyperlipidemia who presents to the emergency department by ambulance for dysuria, fatigue, urinary frequency and urgency which started 2 days ago. Patient states he was up every 2 hours with urinary frequency, his urine is alfred in color with a foul odor. Patient was found to have red blood cells, white blood cells, moderate bacteria in his bladder, procalcitonin of 0.77, CK of 37, troponin was negative, no elevation in AST, ALT, alk-phos, total bilirubin was elevated to 1.7 with baseline at 0.8. Glucose 186, creatinine 0.91 above his baseline of 0.75, leukocytosis of 15.2 with a left shift, neutrophils of 11,300, urine chlamydia and gonorrhea are negative PCR. No testicular pain or tenderness, urine and blood cultures are pending. Patient received a total of 2 L of normal saline which is approximately 30 cc/kilograms, his heart rate remains less than 100 beats per minute, he was given 1 g of ceftriaxone,, Tylenol, and he states his pain and symptoms are much improved from when he came in. Patient met sirs criteria but his lactate was 1.3. Patient is nontoxic appearing, does not have rigors or chills, states comfortable discharging home and returning for any worsening of his symptoms. Dr. Das evaluated patient as well and agrees with this plan for discharge. No peritoneal signs on abdominal exam. Patient remains p.o. tolerant. Serial abdominal exam without increase in abdominal pain. Given history and exam, low suspicion for acute abdominal process, such as acute cholecystitis, pancreatitis, perforated viscus, atypical appendicitis, colitis, diverticulitis or torsion. Extensive conversation about ER return precautions and need for close follow-up. Patient is appropriate and amenable to discharge home. Vital signs are stable on repeat examination is unremarkable. Patient has been informed of results. Patient has been given strict return to ER precautions for any new or worsening symptoms. Patient understands to follow up closely with outpatient providers as instructed. Patient understands plan and agrees to discharge home. All questions and concerns answered at this time. <Laura Das, DO - Last Filed: 03/21/22 07:20> Lab Data Labs: Lab Results 03/20/22 03/20/22 03/20/22 Range/Units 12:30 12:30 13:11 WBC 15.2 H (4.5-11.0) X10^3/uL RBC 4.87 (4.5-5.9) X10^6/uL Hgb 14.6 (13.5-17.5) g/dL Hct 43.7 (41-53) % MCV 89.8 (80-100) fL MCH 29.9 (26-34) PG MCHC 33.3 (30-36) % RDW 14.1 (11.6-14.8) % Plt Count 144 L (150-400) X10^3/uL Neut % (Auto) 74.4 (50-75) % Lymph % (Auto) 5.9 L (25-40) % Collier % (Auto) 19.4 H (3-14) % Eos % (Auto) 0.1 L (2-4) % Baso % (Auto) 0.2 (0-2) % Neut # (Auto) 03348 H (6336-9734) /uL Lymph # (Auto) 900 L (6599-2514) /uL Collier # (Auto) 2900 H (0-900) /uL Eos # (Auto) 0 (0-450) /uL Baso # (Auto) 0 (0-100) /uL Sodium 139 (137-145) mmol/L Potassium 3.7 (3.4-5.1) mmol/L Chloride 103 (98-107) mmol/L Carbon Dioxide 27 (22-32) mmol/L BUN 19 (9-20) mg/dL Creatinine 0.91 (0.66-1.25) mg/dL Estimated GFR > 60 (>60) mL/min BUN/Creatinine Ratio 20.9 (6-22) Glucose 186 H (80-110) mg/dL Lactate (0.7-2.1) mmol/L Calcium 9.2 (8.4-10.2) mg/dL Total Bilirubin 1.7 H (0.2-1.3) mg/dL AST 25 (17-59) IU/L ALT 22 (<50) IU/L Alkaline Phosphatase 80 (38-126) U/L Total Creatine Kinase 37 L (55-170) U/L CK-MB (CK-2) TNP CK-MB (CK-2) Rel Index TNP Troponin I < 0.012 (0.01-0.034) ng/mL Total Protein 8.0 (6.3-8.2) g/dL Albumin 4.6 (3.5-5.0) g/dL Globulin 3.4 (1.7-4.1) g/dL Albumin/Globulin Ratio 1.4 (1.0-2.8) Lipase 55 (23-300) U/L Procalcitonin 0.77 H (<0.5) ng/mL Ur Bilirubin Confirm (Negative) Urine RBC (0-5/HPF) Urine WBC (0-5/HPF) Ur Squamous Epith Cells (0-5/HPF) Urine Bacteria (None) Ur Culture Indicated? Ur Chlamydia DNA (PCR) N gonorrhoeae DNA (PCR) 03/20/22 03/20/22 03/20/22 Range/Units 13:11 13:14 13:14 WBC (4.5-11.0) X10^3/uL RBC (4.5-5.9) X10^6/uL Hgb (13.5-17.5) g/dL Hct (41-53) % MCV (80-100) fL MCH (26-34) PG MCHC (30-36) % RDW (11.6-14.8) % Plt Count (150-400) X10^3/uL Neut % (Auto) (50-75) % Lymph % (Auto) (25-40) % Collier % (Auto) (3-14) % Eos % (Auto) (2-4) % Baso % (Auto) (0-2) % Neut # (Auto) (0369-5336) /uL Lymph # (Auto) (8193-3297) /uL Collier # (Auto) (0-900) /uL Eos # (Auto) (0-450) /uL Baso # (Auto) (0-100) /uL Sodium (137-145) mmol/L Potassium (3.4-5.1) mmol/L Chloride (98-107) mmol/L Carbon Dioxide (22-32) mmol/L BUN (9-20) mg/dL Creatinine (0.66-1.25) mg/dL Estimated GFR (>60) mL/min BUN/Creatinine Ratio (6-22) Glucose (80-110) mg/dL Lactate 1.3 (0.7-2.1) mmol/L Calcium (8.4-10.2) mg/dL Total Bilirubin (0.2-1.3) mg/dL AST (17-59) IU/L ALT (<50) IU/L Alkaline Phosphatase (38-126) U/L Total Creatine Kinase (55-170) U/L CK-MB (CK-2) CK-MB (CK-2) Rel Index Troponin I (0.01-0.034) ng/mL Total Protein (6.3-8.2) g/dL Albumin (3.5-5.0) g/dL Globulin (1.7-4.1) g/dL Albumin/Globulin Ratio (1.0-2.8) Lipase (23-300) U/L Procalcitonin (<0.5) ng/mL Ur Bilirubin Confirm Negative (Negative) Urine RBC 5-10/hpf H (0-5/HPF) Urine WBC 30-100/hpf H (0-5/HPF) Ur Squamous Epith Cells 1-5 /hpf (0-5/HPF) Urine Bacteria Moderate (10-30) H (None) Ur Culture Indicated? Specimen cultured Ur Chlamydia DNA (PCR) N gonorrhoeae DNA (PCR) 03/20/22 Range/Units 13:14 WBC (4.5-11.0) X10^3/uL RBC (4.5-5.9) X10^6/uL Hgb (13.5-17.5) g/dL Hct (41-53) % MCV (80-100) fL MCH (26-34) PG MCHC (30-36) % RDW (11.6-14.8) % Plt Count (150-400) X10^3/uL Neut % (Auto) (50-75) % Lymph % (Auto) (25-40) % Collier % (Auto) (3-14) % Eos % (Auto) (2-4) % Baso % (Auto) (0-2) % Neut # (Auto) (6743-6065) /uL Lymph # (Auto) (6918-3644) /uL Collier # (Auto) (0-900) /uL Eos # (Auto) (0-450) /uL Baso # (Auto) (0-100) /uL Sodium (137-145) mmol/L Potassium (3.4-5.1) mmol/L Chloride (98-107) mmol/L Carbon Dioxide (22-32) mmol/L BUN (9-20) mg/dL Creatinine (0.66-1.25) mg/dL Estimated GFR (>60) mL/min BUN/Creatinine Ratio (6-22) Glucose (80-110) mg/dL Lactate (0.7-2.1) mmol/L Calcium (8.4-10.2) mg/dL Total Bilirubin (0.2-1.3) mg/dL AST (17-59) IU/L ALT (<50) IU/L Alkaline Phosphatase (38-126) U/L Total Creatine Kinase (55-170) U/L CK-MB (CK-2) CK-MB (CK-2) Rel Index Troponin I (0.01-0.034) ng/mL Total Protein (6.3-8.2) g/dL Albumin (3.5-5.0) g/dL Globulin (1.7-4.1) g/dL Albumin/Globulin Ratio (1.0-2.8) Lipase (23-300) U/L Procalcitonin (<0.5) ng/mL Ur Bilirubin Confirm (Negative) Urine RBC (0-5/HPF) Urine WBC (0-5/HPF) Ur Squamous Epith Cells (0-5/HPF) Urine Bacteria (None) Ur Culture Indicated? Ur Chlamydia DNA (PCR) Not detected N gonorrhoeae DNA (PCR) Not detected Urine Dip Bedside Urine Bilirubin + 1 Bedside Urine Ketone +/- 5 Urine Specific Molena 1.03 Bedside Urine Occult Blood +++ Bedside Urine pH 6 Bedside Urine Protein +/- 15 Bedside Urine Urobilinogen +/- 1mg Bedside Urine Nitrite + Positive Bedside Urine Leukocytes +/- 15 Esterase ECG Data Interpretation: Paced rhythm rate 96 DC interval 122 QRS 20 QTC 454 similar to previous EKG in 2020 Discharge Plan Departure Patient Disposition: Home Clinical Impression: Complicated urinary tract infection Activity Restrictions/Additional Instructions: *You have been diagnosed with a complicated urinary infection. Please take Bactrim twice a day for the next 7 days, stay hydrated with plenty of water, take Tylenol as needed for fever or pain. Please take Pyridium 3 times a day as needed for burning with urination. I hope that you start feeling better soon, please return to the emergency department for any worsening, we will call you if your urine culture grows something that not covered by your antibiotic. Your ceftriaxone that you received in your IV today likely treated your bladder infection, you should start to get better starting today. Thank you for trusting us with your care, please rest over the next couple of days, and return for any worsening or concerns. Follow-up with your primary doctor. *What to do: *Please continue to take your regular medications as directed. [x] New medication prescriptions sent to your pharmacy: [ [facility]] [ ] New medication written as a paper prescription [ ] No new medications given *Please follow up with your primary care provider in 2-3 days, call for an appointment. Let them know you were seen in the Emergency Department and that we asked that you be seen for follow-up. We will electronically transmit a record of today's note if your PCP is in our system *If you do not have a primary care provider please contact [phone] to establish care with one of the [facility] primary care providers. *Return to Emergency Department if you should have any new, worsening or concerning symptoms, such as [fever greater than 101F, chills, worsening pain, persistent vomiting or other bothersome symptoms] Prescriptions: New sulfamethoxazole-trimethoprim 800-160 mg tablet 1 tab PO BID 7 Days Qty: 14 0RF phenazopyridine [Pyridium] 100 mg tablet 100 mg PO TID PRN (Reason: pain) Qty: 7 0RF No Action losartan 50 mg tablet 50 mg PO .qhs 0RF warfarin [Coumadin] 2.5 mg tablet 2.5 mg PO .COMPLEX 0RF Rx Instructions: 2.5 mg PO daily and 5mg Fridays; aspirin 81 MG tablet,delayed release (DR/EC) 81 mg PO QDAY Qty: 0 0RF carvedilol phosphate [Coreg CR] 20 MG capsule, ER multiphase 24 hr 12.5 mg PO BID Qty: 0 0RF pravastatin [Pravachol] 20 MG tablet 20 mg PO HS Qty: 0 0RF VITAMIN D (Vitamin D3) 1,000 unit PO QDAY Qty: 0 0RF meclizine 25 mg tablet 25 mg PO TID PRN (Reason: dizziness or vertigo) Qty: 14 0RF acetaminophen 325 mg capsule 325 mg PO ONCE PRN0RF (DME) blood-glucose meter [[facility]uch Verio Flex meter] Misc See Rx Instructions .ROUTE .MEDSUPPLY Qty: 1 0RF Rx Instructions: As directed (DME) OneTouch Ultra Blue Test Strip Strip See Rx Instructions .ROUTE .MEDSUPPLY Qty: 10 0RF Rx Instructions: As directed famotidine 20 mg tablet 20 mg PO BID 0RF omega-3 fatty acids 1,000 mg capsule 1,000 mg PO DAILY 0RF (DME) ResMed AirSense 10 Auto See Rx Instructions .ROUTE .MEDSUPPLY 0RF Rx Instructions: CPAP Min: 6 Max: 16 DME: [facility] Referrals: Jerson Stern MD [Primary Care Provider] - Stand Alone Forms: Work Release Note <Laura Das DO - Last Filed: 03/21/22 07:20> Cosign ED Attending Cosignature Attestation: I saw and evaluated patient. He overall appears to not feel well but is in no acute distress. Not hypotensive tachycardic febrile. He is found have leukocytosis a 15 positive procalcitonin 1.6 normal lactic acid a and UTI with nitrite. He is given 1 dose of Rocephin in the ED. Discussion with him and myself in regards to admission versus going home. At this time would like to go home which I feel is reasonable. Return precautions discussed with both he and his . I was immediately available in the department for consultation. Documentation has been reviewed. I agree with assessment and plan.
[2022-03-20 14:09] LABS: Creatine Kinase 37 U/L (55-170)
[2022-03-20 14:10] LABS: Lactate (Lactic Acid) 1.3 mmol/L (0.7-2.1)
[2022-03-20] MEDS: SODIUM CHLORIDE 0.9% 1,000 ML 1000 ML IV (14:16)
[2022-03-20] MEDS: cefTRIAXone 1,000 MG in SODIUM CHLORIDE 0.9% 100 ML 200 ML IV (14:16)
[2022-03-20 14:22] LABS: Troponin I < 0.012 ng/mL (0.01-0.034)
[2022-03-20 14:27] LABS: Procalcitonin 0.77 ng/mL (<0.5)
[2022-03-20 15:26] LABS: Urine N gonorrhoeae NOT DETECTED
[2022-03-20 15:42] LABS: Urine Chlamydia NOT DETECTED
== END 2022-03-20 16:40 | disposition home or self-care (01) ==
PROVIDERS: Emergency Medicine; Emergency Provider Nurse Practitioner Critical Care Medicine; PCP Internal Medicine
DX: N39.0 Urinary tract infection, site not specified (principal); R10.2 Pelvic and perineal pain
CPT/HCPCS: 36415; 80053; 81003; 81015; 82550; 83605; 83690; 84145; 84484; 85025; 87040; 87077; 87086; 87186; 87491; 87591; 93005; 96365; 99284; J0696

== ENCOUNTER → 2022-08-21 10:28 | Outpatient (CLI) | payer OTHER, SELFPAY | PROVIDERS: PCP Internal Medicine; Referring Provider Internal Medicine; Visit Provider Internal Medicine | DX: Z23 Encounter for immunization (principal) | CPT/HCPCS: 90471; 90662 ==

== ENCOUNTER → 2022-09-27 08:09 | Outpatient (CLI) | payer OTHER, SELFPAY ==
[2022-09-27 09:54] LABS: Alanine Aminotransferase 27 IU/L (<50); Albumin 4.3 g/dL (3.5-5.0); Albumin Globulin Ratio 1.5 (1.0-2.8); Alkaline Phosphatase 98 U/L (38-126); Aspartate Aminotransferase 21 IU/L (17-59); BUN Creatinine Ratio 20.5 (6-22); Bilirubin Total 0.8 mg/dL (0.2-1.3); Blood Urea Nitrogen 15 mg/dL (9-20); Calcium 9.3 mg/dL (8.4-10.2); Carbon Dioxide 25 mmol/L (22-32); Chloride 105 mmol/L (98-107); Estimated Glomerular Filt Rate > 60 mL/min (>60); Globulin 2.9 g/dL (1.7-4.1); Glucose 156 mg/dL (80-110); HEMOLYSIS < 15 (0-50); Potassium 4.4 mmol/L (3.4-5.1); Sodium 138 mmol/L (137-145); Total Protein 7.2 g/dL (6.3-8.2)
== END ==
PROVIDERS: PCP Internal Medicine; Referring Provider Internal Medicine; Visit Provider Internal Medicine
DX: E11.9 Type 2 diabetes mellitus without complications (principal)
CPT/HCPCS: 36415; 80053

== ENCOUNTER → 2023-06-18 06:59 | Outpatient (CLI) | payer OTHER, SELFPAY ==
[2023-06-18 08:51] LABS: Cholesterol 189 mg/dL (140-199); HDL Cholesterol 34 mg/dL (40-60); LDL Cholesterol Calculated 106 mg/dL (<100); Triglycerides 245 mg/dL (35-150)
== END ==
PROVIDERS: PCP Internal Medicine; Referring Provider Nurse Practitioner; Visit Provider Nurse Practitioner
DX: I42.8 Other cardiomyopathies (principal)
CPT/HCPCS: 36415; 80061

== ENCOUNTER → 2023-08-15 14:58 | Outpatient (CLI) | payer OTHER, SELFPAY | PROVIDERS: PCP Internal Medicine; Referring Provider Family Medicine; Visit Provider Family Medicine | DX: Z23 Encounter for immunization (principal) | CPT/HCPCS: 90471; 90662 ==

== ENCOUNTER → 2023-09-07 07:52 | Outpatient (CLI) | payer OTHER, SELFPAY ==
[2023-09-07 09:33] LABS: Alanine Aminotransferase 25 IU/L (<50); Albumin 4.4 g/dL (3.5-5.0); Albumin Globulin Ratio 1.5 (1.0-2.8); Alkaline Phosphatase 127 U/L (38-126); Aspartate Aminotransferase 21 IU/L (17-59); BUN Creatinine Ratio 23.3 (6-22); Bilirubin Total 0.6 mg/dL (0.2-1.3); Blood Urea Nitrogen 17 mg/dL (9-20); Calcium 9.4 mg/dL (8.4-10.2); Carbon Dioxide 26 mmol/L (22-32); Chloride 102 mmol/L (98-107); Estimated Glomerular Filt Rate > 60 mL/min (>60); Globulin 2.9 g/dL (1.7-4.1); Glucose 184 mg/dL (80-110); HEMOLYSIS < 15 (0-50); Potassium 4.1 mmol/L (3.4-5.1); Sodium 136 mmol/L (137-145); Total Protein 7.3 g/dL (6.3-8.2)
== END ==
PROVIDERS: PCP Internal Medicine; Referring Provider Internal Medicine; Visit Provider Internal Medicine
DX: E11.8 Type 2 diabetes mellitus with unspecified complications (principal); I10 Essential (primary) hypertension
CPT/HCPCS: 36415; 80053

== ENCOUNTER 2023-09-29 17:34 | Emergency (ER) | payer OTHER, SELFPAY ==
[2023-09-29 17:35] VITALS: BP 161/82; PULSE 96; RESP 18; TEMP 37.2; O2SAT 97; BMI 27.2
--- NOTE | 2023-09-29 18:12 | ED_ITS ---
HPI - Extremity Problem General Chief complaint: Extremity Problem,Nontraumatic Stated complaint: LEFT CALF INJURY Time Seen by Provider: 09/29/23 18:00 Source: patient and family Mode of arrival: Family Vehicle History of Present Illness HPI Narrative: 68-year-old gentleman with a history of chronic AFib, pacemaker, no longer anticoagulated,, hypertension who has been moving doing quite a bit of physical activity over the last 24 hours notes as he was stepping down out of his truck onto his left knee, which is known to have osteoarthritis and he is planning a knee replacement at some point in the distant future, he felt that the knee was unstable on going to give out on him. Not associated with additional weakness or pain. He notes that his left calf is chronically more swollen than the right after some saphenous vein issues in a prior DVT a number of years ago. He is not noting additional pain and once he has the ability to stabilize the knee feels better while walking on it. He had a 2nd episode of stepping out of the truck onto the knee sense of instability and comes in for further evaluation. He does have a history of chronic back pain sees his chiropractor regularly. No issue with his hips that he is aware of. No ankle or foot chronic problems. He has not had any fevers noticed, increased knee effusion redness warmth or swelling. Related Data Home Medications Medication Instructions Recorded Confirmed aspirin 81 mg tablet,delayed 81 mg PO QDAY ##0 12/10/11 08/01/22 release carvedilol phosphate 20 mg 12.5 mg PO BID ##0 12/10/11 08/01/22 capsule,[id number] multiphase (Coreg CR) VITAMIN D (Vitamin D3) 1,000 unit PO QDAY ##0 02/14/13 08/01/22 pravastatin 20 mg tablet 20 mg PO HS ##0 02/14/13 08/01/22 (Pravachol) losartan 50 mg tablet 50 mg PO .qhs 11/10/19 08/01/22 acetaminophen 325 mg capsule 325 mg PO ONCE PRN 12/01/20 08/01/22 blood sugar diagnostic (OneTouch #10 ea 12/01/20 08/01/22 Ultra Blue Test Strip) blood-glucose meter (OneTouch #1 ea 12/01/20 08/01/22 Verio Flex Meter) omega-3 fatty acids 1,000 mg 1,000 mg PO DAILY 12/01/20 08/01/22 capsule ResMed AirSense 10 Auto 01/10/22 08/01/22 famotidine 20 mg tablet 20 mg PO DAILY PRN 08/01/22 08/01/22 warfarin 2.5 mg tablet (Coumadin) 2.5 mg PO .COMPLEX 08/01/22 08/01/22 Previous Rx's Medication Instructions Recorded meclizine 25 mg tablet 25 mg PO TID PRN dizziness or 04/15/20 vertigo #14 tabs Allergies Allergy/AdvReac Type Severity Reaction Status Date / Time adhesive tape Allergy Mild Verified 09/29/23 18:05 ibuprofen Allergy Mild Verified 09/29/23 18:05 simvastatin [From Zocor] Allergy Mild Verified 09/29/23 18:05 dabigatran etexilate Allergy Unknown Verified 09/29/23 18:05 [From PRADAXA] etomidate [ETOMIDATE] Allergy Unknown Verified 09/29/23 18:05 rivaroxaban [From XARELTO] Allergy Unknown Verified 09/29/23 18:05 hydrocodone [HYDROCODONE] AdvReac Mild VOMITING Verified 09/29/23 18:05 lisinopril [LISINOPRIL] AdvReac Mild COUGH Verified 09/29/23 18:05 Review of Systems Review of Systems Narrative: Pertinent positive and negative findings as per HPI Patient History Medical History Type 2 diabetes mellitus Essential hypertension Hyperlipidemia GERD (gastroesophageal reflux disease) Obstructive sleep apnea, adult 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) Pacemaker Anticoagulated on Coumadin Atrial fibrillation Family History Father Alcohol abuse Mother Restless leg Obesity Hypertension Heart disease Anxiety Family/Other Sleep apnea Restless leg Social History marital status: (to Linda) details: lives in [place] number of children: 2 (adult sons) household members: spouse lives independently: Yes housing: house education level: college (BSN) occupational status: employed (Acute Care RN, [employer]) current occupational exposures/hazards: Yes Smoking Status: Never smoker Smoking Status: Never smoker alcohol intake frequency: holidays/special occasions only Substance Use Type: does not use Exam Initial Vital Signs Initial Vital Signs: Vital Signs Temperature 98.9 F 09/29/23 17:35 Pulse Rate 96 H 09/29/23 17:35 Respiratory Rate 18 09/29/23 17:35 Blood Pressure 161/82 H 09/29/23 17:35 Pulse Oximetry 97 09/29/23 17:35 Oxygen Delivery Method Room Air 09/29/23 17:35 General: Alert appropriate in no acute distress Respiratory: Able to speak in full sentences, no obvious respiratory distress Skin: No obvious rashes, warm and dry Neurologic: Grossly intact no obvious asymmetries or abnormalities Psych: appropriate insight and affect, cooperative Extremity: Left calf is slightly more swollen than the right both legs have significant varicosities. The knee is stable on physical exam without warmth, significant effusion. There is no hip tenderness. Course Vital Signs Vital signs: Vital Signs - 8 hr 09/29/23 17:35 Temperature 98.9 F Pulse Rate 96 H Respiratory Rate 18 Blood Pressure 161/82 H Pulse Oximetry 97 Oxygen Delivery Method Room Air MDM - Extremity (Nontraumatic) MDM Narrative Medical decision making narrative: CC: Left knee instability Complicating co-morbidities: Known knee arthritis with prior ACL injury, chronic back pain prior DVT Data collected from: patient, Differential considered: Knee strain, torn ligament, meniscal injury, hip pain, radicular back pain Exam documented above, pertinent findings include: Knee has no significant instability on physical exam but when he stands he still has a sensation that the knee is going to give out. There is no swelling, warmth, redness. No pain or tenderness with range of motion of the left hip Imaging studies independently reviewed: Imaging studies are not felt to be indicated at this point Treatments: Left knee immobilizer for stability Discussion: 68-year-old gentleman with known left knee injury as well as low back pain. Increased activity over the last 24-48 hours and a sensation of knee instability without overt pain. No evidence of infection, acute ligamentous or meniscal injury, septic joint or other findings that would necessitate imaging, additional lab workup or hospitalization. He is given a knee immobilizer for the instability and he is planning on following up with his chiropractor regarding his back pain in 3 days. If the knee issue does not feel that it has improved after the chiropractic visit and with a bit of rest, you will need to follow up with either his primary care doctor orthopedic doctor to further re- evaluate and decide if it truly is the knee the hip or the low back that is the source of his issue and likely will need additional imaging at that time. He understands, questions are answered he is safe for discharge Discharge Plan Departure Patient Disposition: Home Clinical Impression: Knee instability Qualifiers: Laterality: left Qualified Code(s): M25.362 - Other instability, left knee Instructions: DI for Knee Sprain Activity Restrictions/Additional Instructions: Thank you for coming in today With the description of your knee feeling that it is going to give out as you stepped down on it, I am concerned about true instability and the risk of falling and causing further injury. With the increased activity that even doing over the last couple of days the possibilities for this are mild knee strain, ligamentous injury, hip abnormality/pain or strain or radicular problems related to your chronic low back pain. At this time, because there is no obvious acute trauma and no suggestion of DVT or infection, I think it is best to support the knee with a true knee immobilizer. I would recommend that you wear the knee immobilizer when you are out and about to make sure that the knee does not actually give out on you. I would recommend a couple of days and re-evaluate in the knee pain after your chiropractic appointment to help with your chronic back issues this coming Saturday. If it still feels like it is unstable I would recommend following up either with your primary care doctor or an orthopedist for further evaluation. At this point imaging is not going to be helpful and hopefully as the issue evolves it will be more clear whether we need to focus on your knee, your hip or your low back as the source of the issue. If you find that you are getting worse or develop any new symptoms, please feel free to return to the emergency department for further evaluation. Prescriptions: No Action losartan 50 mg tablet 50 mg PO .qhs warfarin [Coumadin] 2.5 mg tablet 2.5 mg PO .COMPLEX Rx Instructions: 2.5 mg PO Uzt-Ute-Owgns-Sat and 5mg --; aspirin 81 MG tablet,delayed release (DR/EC) 81 mg PO QDAY Qty: 0 carvedilol phosphate [Coreg CR] 20 MG capsule, ER multiphase 24 hr 12.5 mg PO BID Qty: 0 pravastatin [Pravachol] 20 MG tablet 20 mg PO HS Qty: 0 VITAMIN D (Vitamin D3) 1,000 unit PO QDAY Qty: 0 meclizine 25 mg tablet 25 mg PO TID PRN (Reason: dizziness or vertigo) Qty: 14 0RF acetaminophen 325 mg capsule 325 mg PO ONCE PRN (DME) blood-glucose meter [OneTouch Verio Flex meter] Misc See Rx Instructions .ROUTE .MEDSUPPLY Qty: 1 Rx Instructions: As directed (DME) OneTouch Ultra Blue Test Strip Strip See Rx Instructions .ROUTE .MEDSUPPLY Qty: 10 Rx Instructions: As directed omega-3 fatty acids 1,000 mg capsule 1,000 mg PO DAILY famotidine 20 mg tablet 20 mg PO DAILY PRN (DME) ResMed AirSense 10 Auto See Rx Instructions .Route .MEDSUPPLY Rx Instructions: CPAP Min: 6 Max: 16 DME: [facility] Referrals: Jerson Stern MD [Primary Care Provider] - Stand Alone Forms: Patient Portal/API, Work Release Note
== END 2023-09-29 18:42 | disposition home or self-care (01) ==
PROVIDERS: Emergency Provider Emergency Medicine; PCP Internal Medicine
DX: M25.362 Other instability, left knee (principal)
CPT/HCPCS: 99282

== ENCOUNTER → 2023-12-31 06:50 | Outpatient (CLI) | payer OTHER, SELFPAY ==
--- NOTE | 2023-12-31 06:53 | DI.RAD.S_ITS ---
PROCEDURE: XR LUMBAR SPINE MIN 4V INDICATIONS: disc degeneration TECHNIQUE: 5 views of the lumbar spine were acquired, including bilateral oblique views. COMPARISON: [facility], , L-SPINE 2-3 VIEWS, 01/12/2013, 16:47. FINDINGS: Bones: 5 nonrib-bearing vertebrae are present. There is normal bony alignment. No vertebral body compression fractures. Moderate to severe degenerative changes at L5-S1 with disc height loss, osteophytosis and facet arthropathy. Remainder of the spine demonstrates mild to moderate multilevel degenerative changes with osteophytosis, disc height loss and facet arthropathy. No suspicious bony lesions. Soft tissues: Overlying bowel gas pattern is normal. No suspicious soft tissue calcifications. Oblique images: No pars defects. Moderate to severe osseous foraminal narrowing at L5-S1. IMPRESSION: 1. No acute bony abnormality. 2. Multilevel degenerative changes of the spine, moderate to severe at L5-S1, mildly increased compared to prior dated January 12, 2013. Dictated by: Skye Javed M.D. on 12/31/2023 at 9:55 Approved by: Skye Javed M.D. on 12/31/2023 at 9:58
== END ==
LOC: RAD 06:52
PROVIDERS: PCP Internal Medicine; Referring Provider Chiropractor; Visit Provider Chiropractor
DX: M51.36 Other intervertebral disc degeneration, lumbar region (principal); M47.817 Spondylosis without myelopathy or radiculopathy, lumbosacral region; M47.816 Spondylosis without myelopathy or radiculopathy, lumbar region
CPT/HCPCS: 72110

== ENCOUNTER → 2024-04-02 06:42 | Outpatient (CLI) | payer OTHER, SELFPAY ==
[2024-04-02 08:35] LABS: Hemoglobin A1C% w Est Avg Glu 7.3 % (4.0-6.0)
[2024-04-02 08:55] LABS: Albumin 4.4 g/dL (3.5-5.0); BUN Creatinine Ratio 27.6 (6-22); Blood Urea Nitrogen 21 mg/dL (9-20); Carbon Dioxide 25 mmol/L (22-32); Chloride 105 mmol/L (98-107); Estimated Glomerular Filt Rate > 60 mL/min (>60); Glucose 174 mg/dL (80-110); HEMOLYSIS < 15 (0-50); Phosphorous 3.2 mg/dL (2.3-3.7); Potassium 4.1 mmol/L (3.4-5.1); Sodium 138 mmol/L (137-145)
== END ==
PROVIDERS: PCP Internal Medicine; Referring Provider Student in an Organized Health Care Education/Training Program; Visit Provider Student in an Organized Health Care Education/Training Program
DX: E11.9 Type 2 diabetes mellitus without complications (principal)
CPT/HCPCS: 36415; 80069; 83036

== ENCOUNTER 2024-04-11 21:02 | Emergency (ER) | payer OTHER, SELFPAY ==
[2024-04-11] VITALS (7 sets, daily range): BP systolic 144–188; BP diastolic 70–89; PULSE 72–78; RESP 15–25; TEMP 36.6; O2SAT 95–98; BMI 26.0
--- NOTE | 2024-04-11 21:13 | DI.RAD.S_ITS ---
PROCEDURE: XR SHOULDER LT MIN 2V INDICATIONS: Shoulder pain TECHNIQUE: 3 views of the shoulder were acquired. COMPARISON: None. FINDINGS: Bones: No fractures or dislocations. Mild acromioclavicular joint degeneration. No suspicious bony lesions. Visualized ribs appear intact. Soft tissues: No suspicious soft tissue calcifications. Left chest wall pacemaker. IMPRESSION: No acute osseous abnormalities. Mild acromioclavicular joint degeneration. Dictated by: Garrison Hendricks M.D. on 04/11/2024 at 21:28 Approved by: Garrison Hendricks M.D. on 04/11/2024 at 21:29
--- NOTE | 2024-04-11 21:45 | ED.EXTPRO ---
HPI - Extremity Problem General Chief complaint: Extremity Problem,Nontraumatic Stated complaint: Shoulder Pain Time Seen by Provider: 04/11/24 21:12 Source: patient Mode of arrival: Family Vehicle History of Present Illness HPI Narrative: 68-year-old male. Does have a pacemaker in place. Is not on anticoagulation. Never had heart attack. Is here for evaluation of discomfort in his left shoulder/armpit. Has been present for the past week. Not 1 specific incident that caused the discomfort. Not necessarily worse with palpation or movement. No shortness of breath. No skin changes. He denies chest pain. He did state that the discomfort hurt today when he was walking and then did get somewhat better with resting although earlier this week there have been other times where he has had discomfort not associated with exertion. Related Data Home Medications Medication Instructions Recorded Confirmed aspirin 81 mg tablet,delayed 81 mg PO QDAY ##0 12/10/11 08/01/22 release carvedilol phosphate 20 mg 12.5 mg PO BID ##0 12/10/11 08/01/22 capsule,[id number] multiphase (Coreg CR) VITAMIN D (Vitamin D3) 1,000 unit PO QDAY ##0 02/14/13 08/01/22 pravastatin 20 mg tablet 20 mg PO HS ##0 02/14/13 08/01/22 (Pravachol) losartan 50 mg tablet 50 mg PO .qhs 11/10/19 08/01/22 acetaminophen 325 mg capsule 325 mg PO ONCE PRN 12/01/20 08/01/22 blood sugar diagnostic (OneTouch #10 ea 12/01/20 08/01/22 Ultra Blue Test Strip) blood-glucose meter (OneTouch #1 ea 12/01/20 08/01/22 Verio Flex Meter) omega-3 fatty acids 1,000 mg 1,000 mg PO DAILY 12/01/20 08/01/22 capsule ResMed AirSense 10 Auto 01/10/22 08/01/22 famotidine 20 mg tablet 20 mg PO DAILY PRN 08/01/22 08/01/22 warfarin 2.5 mg tablet (Coumadin) 2.5 mg PO .COMPLEX 08/01/22 08/01/22 Previous Rx's Medication Instructions Recorded meclizine 25 mg tablet 25 mg PO TID PRN dizziness or 04/15/20 vertigo #14 tabs Allergies Allergy/AdvReac Type Severity Reaction Status Date / Time adhesive tape Allergy Mild Verified 04/11/24 21:11 ibuprofen Allergy Mild Verified 04/11/24 21:11 simvastatin [From Zocor] Allergy Mild Verified 04/11/24 21:11 dabigatran etexilate Allergy Unknown Verified 04/11/24 21:11 [From PRADAXA] etomidate [ETOMIDATE] Allergy Unknown Verified 04/11/24 21:11 rivaroxaban [From XARELTO] Allergy Unknown Verified 04/11/24 21:11 hydrocodone [HYDROCODONE] AdvReac Mild VOMITING Verified 04/11/24 21:11 lisinopril [LISINOPRIL] AdvReac Mild COUGH Verified 04/11/24 21:11 Review of Systems Review of Systems Narrative: See HPI Patient History Medical History Type 2 diabetes mellitus Essential hypertension Hyperlipidemia GERD (gastroesophageal reflux disease) Obstructive sleep apnea, adult 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) Pacemaker Anticoagulated on Coumadin Atrial fibrillation Family History Father Alcohol abuse Mother Restless leg Obesity Hypertension Heart disease Anxiety Family/Other Sleep apnea Restless leg Social History marital status: (to Linda) details: lives in [place] number of children: 2 (adult sons) household members: spouse lives independently: Yes housing: house education level: college (BSN) occupational status: employed (Acute Care RN, [employer]) current occupational exposures/hazards: Yes Smoking Status: Never smoker Smoking Status: Never smoker alcohol intake frequency: holidays/special occasions only Substance Use Type: does not use Exam Initial Vital Signs Initial Vital Signs: Vital Signs Temperature 97.9 F 04/11/24 21:07 Pulse Rate 74 04/11/24 21:07 Respiratory Rate 16 04/11/24 21:07 Blood Pressure 188/89 H 04/11/24 21:07 Pulse Oximetry 98 04/11/24 21:07 Oxygen Delivery Method Room Air 04/11/24 21:07 HENMT Head: normal to inspection and normocephalic Resp Effort & Inspection: normal respiratory effort Auscultation: clear to auscultation bilaterally Skin General: no rashes or lesions noted Extrem General: normal to inspection, No capillary refill normal and No edema Other: No specific discomfort with palpation of the left shoulder. Left elbow is unremarkable. No axillary lymphadenopathy felt. Pain not reproducible with palpation. Course Orders Ordered: ED Orders 04/11/24 21:13 XR shoulder LT min 2V Stat EKG-12 Lead Stat 04/11/24 22:04 Complete Blood Count AUTO DIFF Stat Comprehensive Metabolic Panel Stat Lipase Stat Troponin & CK Cardiac Panel Stat 04/12/24 00:00 Troponin & CK Cardiac Panel Stat Vital Signs Vital signs: Vital Signs - 8 hr 04/11/24 21:07 04/11/24 22:04 04/11/24 22:05 Temperature 97.9 F Pulse Rate 74 78 72 Respiratory Rate 16 19 19 Blood Pressure 188/89 H 144/70 H Pulse Oximetry 98 97 96 Oxygen Delivery Method Room Air 04/11/24 22:05 04/11/24 22:30 04/11/24 22:30 Temperature Pulse Rate 73 Respiratory Rate 16 Blood Pressure 164/83 H 174/87 H Pulse Oximetry 96 Oxygen Delivery Method 04/11/24 23:00 04/11/24 23:00 04/11/24 23:30 Temperature Pulse Rate 78 74 Respiratory Rate 15 25 H Blood Pressure 155/80 H Pulse Oximetry 95 95 Oxygen Delivery Method 04/11/24 23:36 04/12/24 00:00 04/12/24 00:00 Temperature Pulse Rate 76 Respiratory Rate 18 27 H Blood Pressure 147/82 H Pulse Oximetry 95 Oxygen Delivery Method 04/12/24 00:30 04/12/24 00:30 Temperature Pulse Rate 73 Respiratory Rate 22 Blood Pressure 152/82 H Pulse Oximetry 96 Oxygen Delivery Method MDM - Extremity (Nontraumatic) Lab Data 04/11/24 22:04 04/11/24 22:04 Labs: Lab Results 04/11/24 04/12/24 Range/Units 22:04 00:00 WBC 4.9 (4.5-11.0) X10^3/uL RBC 4.20 L (4.5-5.9) X10^6/uL Hgb 13.0 L (13.5-17.5) g/dL Hct 37.0 L (41-53) % MCV 88.1 (80-100) fL MCH 30.9 (26-34) PG MCHC 35.1 (30-36) % RDW 13.4 (11.6-14.8) % Plt Count 139 L (150-400) X10^3/uL Neut % (Auto) 39.1 L (50-75) % Lymph % (Auto) 38.7 (25-40) % Briscoe % (Auto) 20.2 H (3-14) % Eos % (Auto) 1.3 L (2-4) % Baso % (Auto) 0.7 (0-2) % Neut # (Auto) 1900 (0535-4686) /uL Lymph # (Auto) 1900 (7193-1046) /uL [place]iscoe # (Auto) 1000 H (0-900) /uL Eos # (Auto) 100 (0-450) /uL Baso # (Auto) 0 (0-100) /uL Sodium 139 (137-145) mmol/L Potassium 3.9 (3.4-5.1) mmol/L Chloride 105 (98-107) mmol/L Carbon Dioxide 27 (22-32) mmol/L BUN 22 H (9-20) mg/dL Creatinine 0.79 (0.66-1.25) mg/dL Estimated GFR > 60 (>60) mL/min BUN/Creatinine Ratio 27.8 H (6-22) Glucose 242 H (80-110) mg/dL Calcium 8.8 (8.4-10.2) mg/dL Total Bilirubin 0.6 (0.2-1.3) mg/dL AST 23 (17-59) IU/L ALT 22 (<50) IU/L Alkaline Phosphatase 124 (38-126) U/L Total Creatine Kinase 69 63 (55-170) U/L Troponin I 0.068 H 0.063 H (0.01-0.034) ng/mL Total Protein 7.1 (6.3-8.2) g/dL Albumin 4.3 (3.5-5.0) g/dL Globulin 2.8 (1.7-4.1) g/dL Albumin/Globulin Ratio 1.5 (1.0-2.8) Lipase 121 (23-300) U/L Imaging Data Extremity x-ray #1: Radiologist's Impression: PROCEDURE: XR SHOULDER LT MIN 2V INDICATIONS: Shoulder pain TECHNIQUE: 3 views of the shoulder were acquired. COMPARISON: None. FINDINGS: Bones: No fractures or dislocations. Mild acromioclavicular joint degeneration. No suspicious bony lesions. Visualized ribs appear intact. Soft tissues: No suspicious soft tissue calcifications. Left chest wall pacemaker. IMPRESSION: No acute osseous abnormalities. Mild acromioclavicular joint degeneration. ECG Data Interpretation: Ventricularly paced Rate is 67 MDM Narrative Medical decision making narrative: Ventricularly paced on the EKG. Troponins are unchanged and most likely slightly elevated because of his pacemaker. Low suspicion for pneumonia. Could potentially be musculoskeletal in origin although it was not specifically reproducible with palpation. Was no signs of any infection. Plan will be to have him rest the shoulder over the next couple days. Anti-inflammatories as needed. If his symptoms worsen he will return to the emergency department. If symptoms are not improved or if he finds that it does continue to happened with exertion he will contact his suspender cutter for follow-up to discuss further risk stratification testing. He expressed understanding and agreement with the plan. Discharge Plan Departure Patient Disposition: Home Clinical Impression: Left shoulder pain Instructions: How To Perform RICE (Rest, Ice, Compress, Elevate) Activity Restrictions/Additional Instructions: I do recommend on Saturday morning you contact your primary care provider and also your suspender cutter for a follow-up. Return to the emergency department for new or worsening symptoms Prescriptions: No Action losartan 50 mg tablet 50 mg PO .qhs warfarin [Coumadin] 2.5 mg tablet 2.5 mg PO .COMPLEX Rx Instructions: 2.5 mg PO Say-Zaa-Bjrqy-Sat and 5mg --; aspirin 81 MG tablet,delayed release (DR/EC) 81 mg PO QDAY Qty: 0 carvedilol phosphate [Coreg CR] 20 MG capsule, ER multiphase 24 hr 12.5 mg PO BID Qty: 0 pravastatin [Pravachol] 20 MG tablet 20 mg PO HS Qty: 0 VITAMIN D (Vitamin D3) 1,000 unit PO QDAY Qty: 0 meclizine 25 mg tablet 25 mg PO TID PRN (Reason: dizziness or vertigo) Qty: 14 0RF acetaminophen 325 mg capsule 325 mg PO ONCE PRN (DME) blood-glucose meter [OneTouch Verio Flex meter] Misc See Rx Instructions .ROUTE .MEDSUPPLY Qty: 1 Rx Instructions: As directed (DME) OneTouch Ultra Blue Test Strip Strip See Rx Instructions .ROUTE .MEDSUPPLY Qty: 10 Rx Instructions: As directed omega-3 fatty acids 1,000 mg capsule 1,000 mg PO DAILY famotidine 20 mg tablet 20 mg PO DAILY PRN (DME) ResMed AirSense 10 Auto See Rx Instructions .Route .MEDSUPPLY Rx Instructions: CPAP Min: 6 Max: 16 DME: [facility] Referrals: Rhys Hernandes, [Primary Care Provider] - Stand Alone Forms: Patient Portal/API, Work Release Note
[2024-04-11 22:17] LABS: Add Manual Diff / Slide Review NO; Basophils Absolute Auto 0 /uL (0-100); Basophils Percent Auto 0.7 % (0-2); Eosinophils Absolute Auto 100 /uL (0-450); Eosinophils Percent Auto 1.3 % (2-4); Lymphocytes Absolute Auto 1900 /uL (1100-4500); Lymphocytes Percent Auto 38.7 % (25-40); Mean Corpuscular HGB Conc 35.1 % (30-36); Mean Corpuscular Hemoglobin 30.9 PG (26-34); Mean Corpuscular Volume 88.1 fL (80-100); Monocytes Absolute Auto 1000 /uL (0-900); Monocytes Percent Auto 20.2 % (3-14); Neutrophils Absolute Auto 1900 /uL (1500-7000); Neutrophils Percent Auto 39.1 % (50-75); Platelet Count 139 X10^3/uL (150-400); Red Cell Distribution Width 13.4 % (11.6-14.8); White Blood Cell Count 4.9 X10^3/uL (4.5-11.0)
[2024-04-11 22:24] LABS: Alanine Aminotransferase 22 IU/L (<50); Albumin 4.3 g/dL (3.5-5.0); Albumin Globulin Ratio 1.5 (1.0-2.8); Alkaline Phosphatase 124 U/L (38-126); Aspartate Aminotransferase 23 IU/L (17-59); BUN Creatinine Ratio 27.8 (6-22); Bilirubin Total 0.6 mg/dL (0.2-1.3); Blood Urea Nitrogen 22 mg/dL (9-20); Calcium 8.8 mg/dL (8.4-10.2); Carbon Dioxide 27 mmol/L (22-32); Chloride 105 mmol/L (98-107); Creatine Kinase 69 U/L (55-170); Estimated Glomerular Filt Rate > 60 mL/min (>60); Globulin 2.8 g/dL (1.7-4.1); Glucose 242 mg/dL (80-110); HEMOLYSIS 16 (0-50); Lipase 121 U/L (23-300); Potassium 3.9 mmol/L (3.4-5.1); Sodium 139 mmol/L (137-145); Total Protein 7.1 g/dL (6.3-8.2)
[2024-04-11 22:36] LABS: Troponin I 0.068 ng/mL (0.01-0.034)
[2024-04-12] VITALS: BP 147/82; PULSE 76; RESP 27; O2SAT 95
[2024-04-12 00:19] LABS: Creatine Kinase 63 U/L (55-170)
[2024-04-12 00:30] VITALS: BP 152/82; PULSE 73; RESP 22; O2SAT 96
[2024-04-12 00:32] LABS: Troponin I 0.063 ng/mL (0.01-0.034)
== END 2024-04-12 01:08 | disposition home or self-care (01) ==
PROVIDERS: Emergency Provider Emergency Medicine; PCP Student in an Organized Health Care Education/Training Program
DX: M25.512 Pain in left shoulder (principal); Z95.0 Presence of cardiac pacemaker; Z79.899 Other long term (current) drug therapy; Z79.01 Long term (current) use of anticoagulants
CPT/HCPCS: 36415; 73030; 80053; 82550; 83690; 84484; 85025; 93005; 99283; 99284

== ENCOUNTER 2024-04-14 21:56 | Emergency (ER) | payer OTHER, SELFPAY ==
[2024-04-14 22:00] VITALS: BP 149/80; PULSE 83; RESP 21
[2024-04-14 22:05] VITALS: BP 149/80; PULSE 82; RESP 21; TEMP 36.8; O2SAT 100; BMI 26.3
--- NOTE | 2024-04-14 22:09 | DI.RAD.S_ITS ---
PROCEDURE: XR CHEST 1V INDICATIONS: chest pain TECHNIQUE: One view of the chest was acquired. COMPARISON: [facility], , CHEST 2 VIEW, 07/30/2013, 9:51. FINDINGS: Surgical changes and devices: Cardiac pacemaker is seen with pulse generator in the left chest. Lungs and pleura: Lungs are clear. No pleural effusions or pneumothorax. Mediastinum: Mediastinal contours appear normal. Heart size is normal. Bones and chest wall: No suspicious bony lesions. Overlying soft tissues appear unremarkable. IMPRESSION: No acute cardiopulmonary abnormality is seen. Approved by: Candido Brito M.D. on 04/14/2024 at 22:21
[2024-04-14 22:30] VITALS: PULSE 84; RESP 37; O2SAT 96
[2024-04-14 22:44] LABS: Add Manual Diff / Slide Review NO; Basophils Absolute Auto 100 /uL (0-100); Basophils Percent Auto 1.4 % (0-2); Eosinophils Absolute Auto 0 /uL (0-450); Hematocrit 39.1 % (41-53); Hemoglobin 13.6 g/dL (13.5-17.5); Lymphocytes Absolute Auto 1600 /uL (1100-4500); Lymphocytes Percent Auto 31.5 % (25-40); Mean Corpuscular HGB Conc 34.8 % (30-36); Mean Corpuscular Hemoglobin 31.2 PG (26-34); Mean Corpuscular Volume 89.5 fL (80-100); Monocytes Absolute Auto 1100 /uL (0-900); Monocytes Percent Auto 21.4 % (3-14); Neutrophils Absolute Auto 2200 /uL (1500-7000); Neutrophils Percent Auto 44.7 % (50-75); Platelet Count 140 X10^3/uL (150-400); Red Blood Cell Count 4.37 X10^6/uL (4.5-5.9); Red Cell Distribution Width 13.3 % (11.6-14.8)
[2024-04-14 22:52] LABS: Prothrombin Time 11.6 SECONDS (9.4-12.5)
[2024-04-14 22:55] LABS: PTT Partial Thromboplastin Tim 34 SECONDS (25.1-36.5)
[2024-04-14 22:59] LABS: Alanine Aminotransferase 24 IU/L (<50); Albumin 4.4 g/dL (3.5-5.0); Albumin Globulin Ratio 1.6 (1.0-2.8); Alkaline Phosphatase 114 U/L (38-126); Aspartate Aminotransferase 24 IU/L (17-59); BUN Creatinine Ratio 30.6 (6-22); Bilirubin Total 0.6 mg/dL (0.2-1.3); Blood Urea Nitrogen 22 mg/dL (9-20); Calcium 9.1 mg/dL (8.4-10.2); Carbon Dioxide 24 mmol/L (22-32); Chloride 107 mmol/L (98-107); Creatine Kinase 62 U/L (55-170); Estimated Glomerular Filt Rate > 60 mL/min (>60); Globulin 2.8 g/dL (1.7-4.1); Glucose 235 mg/dL (80-110); HEMOLYSIS 22 (0-50); Lipase 105 U/L (23-300); Potassium 4.1 mmol/L (3.4-5.1); Sodium 138 mmol/L (137-145); Total Protein 7.2 g/dL (6.3-8.2)
[2024-04-14 23:08] VITALS: PULSE 82; RESP 20; O2SAT 98
[2024-04-14 23:11] LABS: Troponin I 0.019 ng/mL (0.01-0.034)
[2024-04-14 23:30] VITALS: PULSE 83; RESP 16; O2SAT 95
[2024-04-15] VITALS (19 sets, daily range): BP systolic 116–157; BP diastolic 66–80; PULSE 60–82; RESP 8–31; TEMP 36.6; O2SAT 93–99
[2024-04-15 00:28] LABS: Creatine Kinase 82 U/L (55-170)
[2024-04-15 00:42] LABS: Troponin I 0.116 ng/mL (0.01-0.034)
--- NOTE | 2024-04-15 00:57 | ED.CHESTPAIN ---
HPI - Chest Pain General Chief Complaint: Chest Pain Stated Complaint: cp Time Seen by Provider: 04/14/24 22:30 Source: patient and EMS Mode of arrival: EMS Limitations: no limitations History of Present Illness HPI narrative: Patient is a 68-year-old male. 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 Has also had an ablation in the past. Is followed by Cardiology at the [facility] in [place]. I evaluated the patient in the emergency department approximately 4 days ago for discomfort in his left armpit. At that visit the pain was not reproducible. It was exertional in nature. He has been having it off and on for some time. At the time of my evaluation at that point he was asymptomatic. Had a paced nonischemic EKG. Had troponins that were indeterminate at 0.068 and then a 2 hour repeat at 0.063. Decision was made to discharge patient home. He has been asymptomatic until last evening when he states that he got up to check on something in his yd before he went to bed. He was exerting himself and develop the same discomfort that he had when I evaluated him your 4 days ago. He stated that the symptoms did improve somewhat when he rested and then completely went away after taking nitroglycerin. He received aspirin by EMS prior to arrival. By the time I evaluated the patient he was asymptomatic. Denied chest pain. Nausea vomiting. Lower extremity swelling. Headache. Related Data Home Medications Medication Instructions Recorded Confirmed aspirin 81 mg tablet,delayed 81 mg PO QDAY ##0 12/10/11 08/01/22 release carvedilol phosphate 20 mg 12.5 mg PO BID ##0 12/10/11 08/01/22 capsule,[id number] multiphase (Coreg CR) VITAMIN D (Vitamin D3) 1,000 unit PO QDAY ##0 02/14/13 08/01/22 pravastatin 20 mg tablet 20 mg PO HS ##0 02/14/13 08/01/22 (Pravachol) losartan 50 mg tablet 50 mg PO .qhs 11/10/19 08/01/22 acetaminophen 325 mg capsule 325 mg PO ONCE PRN 12/01/20 08/01/22 blood sugar diagnostic (OneTouch #10 ea 12/01/20 08/01/22 Ultra Blue Test Strip) blood-glucose meter (OneTouch #1 ea 12/01/20 08/01/22 Verio Flex Meter) omega-3 fatty acids 1,000 mg 1,000 mg PO DAILY 12/01/20 08/01/22 capsule ResMed AirSense 10 Auto 01/10/22 08/01/22 famotidine 20 mg tablet 20 mg PO DAILY PRN 08/01/22 08/01/22 warfarin 2.5 mg tablet (Coumadin) 2.5 mg PO .COMPLEX 08/01/22 08/01/22 Previous Rx's Medication Instructions Recorded meclizine 25 mg tablet 25 mg PO TID PRN dizziness or 04/15/20 vertigo #14 tabs Allergies Allergy/AdvReac Type Severity Reaction Status Date / Time adhesive tape Allergy Mild Verified 04/11/24 21:11 ibuprofen Allergy Mild Verified 04/11/24 21:11 simvastatin [From Zocor] Allergy Mild Verified 04/11/24 21:11 dabigatran etexilate Allergy Unknown Verified 04/11/24 21:11 [From PRADAXA] etomidate [ETOMIDATE] Allergy Unknown Verified 04/11/24 21:11 rivaroxaban [From XARELTO] Allergy Unknown Verified 04/11/24 21:11 hydrocodone [HYDROCODONE] AdvReac Mild VOMITING Verified 04/11/24 21:11 lisinopril [LISINOPRIL] AdvReac Mild COUGH Verified 04/11/24 21:11 Review of Systems Review of Systems ROS Unobtainable: All systems reviewed & are unremarkable except as noted in HPI and below Patient History Medical History Type 2 diabetes mellitus Essential hypertension Hyperlipidemia GERD (gastroesophageal reflux disease) Obstructive sleep apnea, adult History of DVT in adulthood History of Dlaton's palsy (~1990) Pacemaker Anticoagulated on Coumadin Atrial fibrillation Family History Father Alcohol abuse Mother Restless leg Obesity Hypertension Heart disease Anxiety Family/Other Sleep apnea Restless leg Social History marital status: (to Linda) details: lives in [place] number of children: 2 (adult sons) household members: spouse lives independently: Yes housing: house education level: college (BSN) occupational status: employed (Acute Care RN, [employer]) current occupational exposures/hazards: Yes Smoking Status: Never smoker Smoking Status: Never smoker alcohol intake frequency: holidays/special occasions only Substance Use Type: does not use Exam Initial Vital Signs Initial Vital Signs: Vital Signs Pulse Rate 83 04/14/24 22:00 Respiratory Rate 21 04/14/24 22:00 Blood Pressure 149/80 H 04/14/24 22:00 Const General: cooperative, comfortable and No ill appearing HENMT Head: normal to inspection and normocephalic Resp Effort & Inspection: normal respiratory effort Auscultation: clear to auscultation bilaterally Cardio Rate: regular rate Rhythm: regular rhythm GI Inspection: normal to inspection and non-distended Skin General: no rashes or lesions noted Neuro General: patient alert, patient awake, patient oriented x3 and moves all extremities Extrem General: No edema Course Orders Ordered: ED Orders 04/14/24 22:09 XR chest 1V Stat EKG-12 Lead Stat 04/14/24 22:18 Complete Blood Count AUTO DIFF Stat Comprehensive Metabolic Panel Stat Lipase Stat Magnesium Stat PTT Partial Thromboplastin Patrick Stat Prothrombin Time INR Stat Troponin & CK Cardiac Panel Stat 04/15/24 00:07 Troponin & CK Cardiac Panel Stat 04/15/24 01:52 Troponin & CK Cardiac Panel Stat 04/15/24 02:33 PTT Partial Thromboplastin Patrick Q6H 04/15/24 07:45 PTT Partial Thromboplastin Patrick Stat Trop I [Troponin I] Stat 04/15/24 13:15 PTT Partial Thromboplastin Patrick Q6H 04/15/24 19:15 PTT Partial Thromboplastin Patrick Q6H 04/16/24 05:00 Hemoglobin and Hematocrit DAILY Platelet Count DAILY 04/17/24 05:00 Hemoglobin and Hematocrit DAILY Platelet Count DAILY Heparin Sodium/Dextrose (Heparin Drip) 25,000 unit in 500 mls @ 17.745 mls/hr IV CONT PAULINA; Protocol Last Admin: 04/15/24 01:38 Dose: 12 units/kg/hr, 17.745 mls/hr Documented By: LATHA Co-signed By: GC Discontinued Medications Aspirin (Aspirin 81 Mg Chew Tab) 324 mg PO NOW ONE Stop: 04/15/24 00:59 Last Admin: 04/15/24 01:21 Dose: Not Given Documented By: LATHA Heparin Sodium (Porcine) (Heparin 5,000 Unit/Ml Vial) 4,000 unit IV NOW ONE Stop: 04/15/24 01:31 Last Admin: 04/15/24 01:37 Dose: 4,000 unit Documented By: LATHA Vital Signs Vital signs: Vital Signs - 8 hr 04/14/24 23:08 04/14/24 23:30 04/15/24 00:00 Pulse Rate 82 83 76 Respiratory Rate 20 16 14 Blood Pressure Pulse Oximetry 98 95 95 04/15/24 00:30 04/15/24 00:35 04/15/24 00:35 Pulse Rate 72 78 Respiratory Rate 12 20 Blood Pressure 146/76 H Pulse Oximetry 97 96 04/15/24 01:00 04/15/24 01:46 04/15/24 01:47 Pulse Rate 69 82 82 Respiratory Rate 17 19 Blood Pressure Pulse Oximetry 99 97 04/15/24 01:47 04/15/24 02:00 04/15/24 02:02 Pulse Rate 79 Respiratory Rate 18 Blood Pressure 157/78 H 138/73 Pulse Oximetry 96 04/15/24 02:02 04/15/24 02:30 04/15/24 02:30 Pulse Rate 80 76 Respiratory Rate 31 H 12 Blood Pressure 130/73 Pulse Oximetry 96 95 04/15/24 03:00 04/15/24 03:00 04/15/24 03:30 Pulse Rate 76 Respiratory Rate 11 L Blood Pressure 133/66 124/70 Pulse Oximetry 94 04/15/24 03:30 04/15/24 04:00 04/15/24 04:00 Pulse Rate 69 64 Respiratory Rate 12 8 L Blood Pressure 129/68 Pulse Oximetry 95 95 04/15/24 04:30 04/15/24 04:30 04/15/24 05:00 Pulse Rate 64 70 Respiratory Rate 14 10 L Blood Pressure 123/66 Pulse Oximetry 96 96 04/15/24 05:00 04/15/24 05:30 04/15/24 05:30 Pulse Rate 60 Respiratory Rate 14 Blood Pressure 116/69 124/70 Pulse Oximetry 94 04/15/24 06:00 04/15/24 06:30 04/15/24 06:30 Pulse Rate 64 60 Respiratory Rate 19 15 Blood Pressure 127/71 Pulse Oximetry 93 95 MDM - Chest Pain Medical Records Data Attestation: I reviewed the patient's medical records. Lab Data Attestation: I reviewed the patient's lab results. 04/14/24 22:18 04/14/24 22:18 Labs: Lab Results 04/14/24 04/15/24 04/15/24 Range/Units 22:18 00:07 01:52 WBC 5.0 (4.5-11.0) X10^3/uL RBC 4.37 L (4.5-5.9) X10^6/uL Hgb 13.6 (13.5-17.5) g/dL Hct 39.1 L (41-53) % MCV 89.5 (80-100) fL MCH 31.2 (26-34) PG MCHC 34.8 (30-36) % RDW 13.3 (11.6-14.8) % Plt Count 140 L (150-400) X10^3/uL Neut % (Auto) 44.7 L (50-75) % Lymph % (Auto) 31.5 (25-40) % [place] % (Auto) 21.4 H (3-14) % Eos % (Auto) 1.0 L (2-4) % Baso % (Auto) 1.4 (0-2) % Neut # (Auto) 2200 (7867-4474) /uL Lymph # (Auto) 1600 (4812-8859) /uL [place] # (Auto) 1100 H (0-900) /uL Eos # (Auto) 0 (0-450) /uL Baso # (Auto) 100 (0-100) /uL PT 11.6 (9.4-12.5) SECONDS INR 1.0 (0.9-1.3) APTT 34 (25.1-36.5) SECONDS Sodium 138 (137-145) mmol/L Potassium 4.1 (3.4-5.1) mmol/L Chloride 107 (98-107) mmol/L Carbon Dioxide 24 (22-32) mmol/L BUN 22 H (9-20) mg/dL Creatinine 0.72 (0.66-1.25) mg/dL Estimated GFR > 60 (>60) mL/min BUN/Creatinine Ratio 30.6 H (6-22) Glucose 235 H (80-110) mg/dL Calcium 9.1 (8.4-10.2) mg/dL Magnesium 2.0 (1.6-2.3) mg/dL Total Bilirubin 0.6 (0.2-1.3) mg/dL AST 24 (17-59) IU/L ALT 24 (<50) IU/L Alkaline Phosphatase 114 (38-126) U/L Total Creatine Kinase 62 82 96 (55-170) U/L Troponin I 0.019 0.116 H 0.263 H* (0.01-0.034) ng/mL Total Protein 7.2 (6.3-8.2) g/dL Albumin 4.4 (3.5-5.0) g/dL Globulin 2.8 (1.7-4.1) g/dL Albumin/Globulin Ratio 1.6 (1.0-2.8) Lipase 105 (23-300) U/L 04/15/24 Range/Units 02:33 WBC (4.5-11.0) X10^3/uL RBC (4.5-5.9) X10^6/uL Hgb (13.5-17.5) g/dL Hct (41-53) % MCV (80-100) fL MCH (26-34) PG MCHC (30-36) % RDW (11.6-14.8) % Plt Count (150-400) X10^3/uL Neut % (Auto) (50-75) % Lymph % (Auto) (25-40) % Camden % (Auto) (3-14) % Eos % (Auto) (2-4) % Baso % (Auto) (0-2) % Neut # (Auto) (3240-1029) /uL Lymph # (Auto) (2015-3596) /uL Camden # (Auto) (0-900) /uL Eos # (Auto) (0-450) /uL Baso # (Auto) (0-100) /uL PT (9.4-12.5) SECONDS INR (0.9-1.3) APTT 121 H* D (25.1-36.5) SECONDS Sodium (137-145) mmol/L Potassium (3.4-5.1) mmol/L Chloride (98-107) mmol/L Carbon Dioxide (22-32) mmol/L BUN (9-20) mg/dL Creatinine (0.66-1.25) mg/dL Estimated GFR (>60) mL/min BUN/Creatinine Ratio (6-22) Glucose (80-110) mg/dL Calcium (8.4-10.2) mg/dL Magnesium (1.6-2.3) mg/dL Total Bilirubin (0.2-1.3) mg/dL AST (17-59) IU/L ALT (<50) IU/L Alkaline Phosphatase (38-126) U/L Total Creatine Kinase (55-170) U/L Troponin I (0.01-0.034) ng/mL Total Protein (6.3-8.2) g/dL Albumin (3.5-5.0) g/dL Globulin (1.7-4.1) g/dL Albumin/Globulin Ratio (1.0-2.8) Lipase (23-300) U/L Imaging Data Chest x-ray: Radiologist's Impression: PROCEDURE: XR CHEST 1V INDICATIONS: chest pain TECHNIQUE: One view of the chest was acquired. COMPARISON: [facility], , CHEST 2 VIEW, 07/30/2013, 9:51. FINDINGS: Surgical changes and devices: Cardiac pacemaker is seen with pulse generator in the left chest. Lungs and pleura: Lungs are clear. No pleural effusions or pneumothorax. Mediastinum: Mediastinal contours appear normal. Heart size is normal. Bones and chest wall: No suspicious bony lesions. Overlying soft tissues appear unremarkable. IMPRESSION: No acute cardiopulmonary abnormality is seen. ECG Data Attestation: I personally reviewed and interpreted this ECG as follows: Interpretation: Atrially sensed ventricularly paced rhythm Rate is 76 MDM Narrative Medical decision making narrative: Patient has been asymptomatic since arrival here in the emergency department. His chest x-ray is unremarkable. He was paced on his EKG. His initial troponin is negative and is less than what it was when he was here 4 days ago which is somewhat concerning that potentially a couple days ago the indeterminate troponin was actually from an ischemic issue and not from his pacemaker. 2 hour repeat troponin shows that it is now positive. He was started on heparin. He remains asymptomatic. A 2nd 2 hour repeat shows the troponin still continuing to rise. Rest of his electrolytes are unremarkable. Attempted to transfer the patient back to the facility where his cardiologists are located however there was no bed availability and we were unable to get any sort of assurances that a bed would be available any time soon. Attempted to contact multiple different places. Eventually discussed the case with Cardiology and then eventually with Dr. Rivera he was the hospitalist at [facility]. They accept the patient in transfer. Patient is stable for transport. Patient understands need for transport secondary to consultation with Cardiology. Discharge Plan Departure Patient Disposition: [facility] Clinical Impression: Non-ST elevation WI (NSTEMI) Prescriptions: No Action losartan 50 mg tablet 50 mg PO .qhs warfarin [Coumadin] 2.5 mg tablet 2.5 mg PO .COMPLEX Rx Instructions: 2.5 mg PO Nkw-Hoz-Jbwye-Sat and 5mg --; aspirin 81 MG tablet,delayed release (DR/EC) 81 mg PO QDAY Qty: 0 carvedilol phosphate [Coreg CR] 20 MG capsule, ER multiphase 24 hr 12.5 mg PO BID Qty: 0 pravastatin [Pravachol] 20 MG tablet 20 mg PO HS Qty: 0 VITAMIN D (Vitamin D3) 1,000 unit PO QDAY Qty: 0 meclizine 25 mg tablet 25 mg PO TID PRN (Reason: dizziness or vertigo) Qty: 14 0RF acetaminophen 325 mg capsule 325 mg PO ONCE PRN (DME) blood-glucose meter [OneTouch Verio Flex meter] [facility] See Rx Instructions .ROUTE .MEDSUPPLY Qty: 1 Rx Instructions: As directed (DME) OneTouch Ultra Blue Test Strip Strip See Rx Instructions .ROUTE .MEDSUPPLY Qty: 10 Rx Instructions: As directed omega-3 fatty acids 1,000 mg capsule 1,000 mg PO DAILY famotidine 20 mg tablet 20 mg PO DAILY PRN (DME) ResMed AirSense 10 Auto See Rx Instructions .Route .MEDSUPPLY Rx Instructions: CPAP Min: 6 Max: 16 DME: [facility] Referrals: Rhys Hernandes, [Primary Care Provider] -
--- NOTE | 2024-04-15 01:03 | PC.NURSE ---
Pt reports having taken 81mg aspirin at 1999 and then 240mg aspirin given en route to ED tonight. Provider made aware.
[2024-04-15] MEDS: HEPARIN 5,000 UNIT/ML VIAL 4000 UNIT IV (01:37)
[2024-04-15] MEDS: HEPARIN DRIP 25,000 UNIT/500 ML IV.SOLN 17.745 UNIT IV (01:38)
[2024-04-15 02:21] LABS: Creatine Kinase 96 U/L (55-170)
[2024-04-15 02:36] LABS: Troponin I 0.263 ng/mL (0.01-0.034)
[2024-04-15 03:02] LABS: PTT Partial Thromboplastin Tim 121 SECONDS (25.1-36.5)
--- NOTE | 2024-04-15 07:27 | PC.NURSE ---
No signs of bleeding or neurological change; pupils 3mm equal and responsive. GCS 15. Pt able to move all extremities equally.
--- NOTE | 2024-04-15 07:35 | PC.NURSE ---
Attempted to call Icelandic for report. No answer
== END 2024-04-15 07:35 | disposition short-term general hospital (02) ==
PROVIDERS: Emergency Provider Emergency Medicine; PCP Student in an Organized Health Care Education/Training Program
DX: I21.4 Non-ST elevation (NSTEMI) myocardial infarction (principal); R07.9 Chest pain, unspecified; Z95.0 Presence of cardiac pacemaker
CPT/HCPCS: 36415; 71045; 80053; 82550; 83690; 83735; 84484; 85025; 85610; 85730; 93005; 96365; 96366; 96375; 99284; 99285; J1644

== ENCOUNTER → 2024-05-20 06:34 | Outpatient (CLI) | payer OTHER, SELFPAY ==
[2024-05-20 08:10] LABS: Alanine Aminotransferase 22 IU/L (<50); Albumin 4.3 g/dL (3.5-5.0); Albumin Globulin Ratio 1.4 (1.0-2.8); Alkaline Phosphatase 152 U/L (38-126); Aspartate Aminotransferase 22 IU/L (17-59); BUN Creatinine Ratio 22.7 (6-22); Bilirubin Total 0.6 mg/dL (0.2-1.3); Blood Urea Nitrogen 17 mg/dL (9-20); Calcium 9.3 mg/dL (8.4-10.2); Carbon Dioxide 27 mmol/L (22-32); Chloride 104 mmol/L (98-107); Cholesterol 162 mg/dL (140-199); Estimated Glomerular Filt Rate > 60 mL/min (>60); Globulin 3.1 g/dL (1.7-4.1); Glucose 162 mg/dL (80-110); HDL Cholesterol 45 mg/dL (40-60); HEMOLYSIS < 15 (0-50); LDL Cholesterol Calculated 82 mg/dL (<100); Potassium 4.6 mmol/L (3.4-5.1); Sodium 139 mmol/L (137-145); Total Protein 7.4 g/dL (6.3-8.2); Triglycerides 176 mg/dL (35-150)
== END ==
PROVIDERS: PCP Student in an Organized Health Care Education/Training Program; Referring Provider Internal Medicine Cardiovascular Disease; Visit Provider Internal Medicine Cardiovascular Disease
DX: Z95.1 Presence of aortocoronary bypass graft (principal)
CPT/HCPCS: 36415; 80053; 80061

== ENCOUNTER → 2024-06-09 08:18 | Outpatient (CLI) | payer OTHER, SELFPAY ==
--- NOTE | 2024-06-09 10:03 | DIAB.INIT ---
Initial Diabetes Education Assessment Name: Jason Lopes Date: 06/09/24 Time: 10-11a Dx: Type II Diabetes Provider: Megha Preferred Learning Style: Watching, Listening, Hands-on Jason presents for initial Dm visit. Recent cardiac blockage with significant cardiac hx and FH. Reports main reason being here to day is to learn more about how to manage nutrition. His is second generation Amharic per report. States this equates to high frequency of pasta at dinner. Reports main concern nutritionally is frequency of ice cream and mocha coffees. Portions at meals seem within recs most times. Reports some elevated FBG. Voiced concerns for trying to be on as few medications as possible. Wanting to manage most with lifestyle. Feels he and his are not excited about foods or any one diet. Looking for food options to feel more excited about. Physical Activity: States he averages 2.2 mi per day of walking. He also gardens and is active in ADLS. Self-Monitoring Blood Glucose: Checking FBG and reports ranges of 140-170s mg/dl. Open to CGM sample to learn more about nutrition and overnight glucose. 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 Provided appropriate educational handouts. Discussed the following topics: Completed intake assessment. Discussed barriers to care. Importance of self-monitoring, how often, and when to check. Suggested checking at different times to evaluate meals Reviewed CGM use and equipment Discussed when to check blood sugars using finger stick Reviewed high and low blood sugar signs/symptoms and treatment options Provided education for self-administration of CGM placement Educated patient on alarm settings Discussed when to replace equipment and disposal Plate Method, impact of macronutrients on blood sugar, meal timing, pairing macronutrients and spreading out carbohydrates for better blood glucose management General recommended servings for carbohydrates at meals and snacks Role of physical activity and following provider guidelines for safety Nutrition resources for recipes Created SMART goals for patient self-care and success. Goals: Check out diabetesfoodhub.org Make list of foods or recipes that sound exciting to you Wear CGM x 10 days Follow-up: GAEL ROMAN follow-up in 2-3 weeks. Provided CPT codes for checking with insurance. Seems approval was limited to one DSME visit. Would benefit greatly from MNT and DSME combined therapy. Cindy oCbos RDN, JESSIE Certified Diabetes Care and Social Services Manager P: [phone] Thank you for this referral
== END ==
PROVIDERS: PCP Student in an Organized Health Care Education/Training Program; Referring Provider Student in an Organized Health Care Education/Training Program
DX: E11.9 Type 2 diabetes mellitus without complications (principal); Z79.84 Long term (current) use of oral hypoglycemic drugs; Z71.3 Dietary counseling and surveillance
CPT/HCPCS: G0108

== ENCOUNTER → 2024-06-13 07:39 | Outpatient (CLI) | payer OTHER, SELFPAY ==
[2024-06-13 12:15] LABS: Hemoglobin A1C% w Est Avg Glu 7.7 % (4.0-6.0)
== END ==
PROVIDERS: PCP Student in an Organized Health Care Education/Training Program; Referring Provider Student in an Organized Health Care Education/Training Program; Visit Provider Student in an Organized Health Care Education/Training Program
DX: E11.9 Type 2 diabetes mellitus without complications (principal)
CPT/HCPCS: 36415; 83036

== ENCOUNTER → 2024-07-10 15:16 | Outpatient (CLI) | payer OTHER, SELFPAY ==
--- NOTE | 2024-08-21 13:14 | DIAB.MNT ---
Initial Diabetes Medical Nutrition Therapy Assessment Name: Jason Lopes Date: 07/10/24 Time: 2-3p Dx: Type II Diabetes Provider: Jarred/Cecilio Jason presents for first MNT visit. Reports noticing increases in BG recently. FBG historically 100-110mg/dl, and now has been 150-170mg/dl. Moving recently to a home with less land/up keep. Official move day 07/26. Recently cut out sweetened mochas and peanut m&ms. Usually pairing CHO and protin. Wants a good nutrition routine. Eats ice cream in larger portions than he thinks are appropriate. Diet Recall: B: egg, hashbrowns with sausage OR ww toast with yi yogurt L :leftovers D: cheese sandwich OR pb sandwich OR salad OR fish and chips OR protein with peas sn: 1 mug of ice cream Increased Metformin to BID, see below. Physical Activity: States he started cardiac rehab x 3 days per week. COntinues to average 2.2 mi per day of walking. He also gardens and is active in ADLS. Self-Monitoring Blood Glucose: Checking FBG and reports ranges of 150-170s mg/dl. Recent FBG over the last three days were 175, 163, 183 (all elevated per ADA guidelines). Wore CGM x 10 days and found this informative. Time in range <70% in goal. 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 Provided appropriate educational handouts. Discussed the following topics: Blood sugar trends and implications Potential for increased medication CHO portions and grams per meal or snack Meal timing and spacing CHO through the day BG checks for FBG and dinner pc Created SMART goals for patient self-care and success. Goals: Check out diabetesfoodhub.org- not met Make list of foods or recipes that sound exciting to you- not met Wear CGM x 10 days- in progress Use a smaller cup for ice cream- new Check FBG and dinner pc- new Aim for 30-45g CHO per meal- new Follow-up: GAEL ROMAN follow-up in 3-4 weeks Cindy Cobos RDN, JESSIE Certified Diabetes Care and Soccer Referee P: [phone] Thank you for this referral
== END ==
PROVIDERS: PCP Student in an Organized Health Care Education/Training Program; Referring Provider Student in an Organized Health Care Education/Training Program
DX: E11.9 Type 2 diabetes mellitus without complications (principal); Z71.3 Dietary counseling and surveillance
CPT/HCPCS: 97802

== ENCOUNTER → 2024-08-07 09:44 | Outpatient (CLI) | payer OTHER, SELFPAY ==
--- NOTE | 2024-09-01 10:16 | DIAB.MNTFU ---
Follow-up Diabetes Medical Nutrition Therapy Assessment Name: Jason Lopes Date: 08/07/24 Time: 10-1050a Dx: Type II Diabetes Provider: Jarred/Cecilio Jason presents for first MNT visit. Reports working on home repairs, he just moved. States this has impacted his usual routine. Also endorses a number of health appointments, restarted work, and started cardio rehab. Feels he is not eating frequently enough in general now. Portions at dinner for CHO often 1.5c per report, no veggies. States his does not like veggie much, and endorses difficulty with getting more at meals. Last visit had cut out mochas, but this visit he is limiting the frequency, ordering without whip cream, and ordering 16oz size. Interested in OTC CGM, found trial helpful. Diet Recall: B: egg, hashbrowns with sausage OR ww toast with qatari yogurt L :leftovers D: cheese sandwich OR pb sandwich OR salad OR fish and chips OR protein with peas sn: 1 mug of ice cream Increased Metformin to BID, see below. Anthropometrics: Wt: 165.1# reported personal goal: 160# Physical Activity: States he started cardiac rehab x 3 days per week. Walking daily. 4500 [place] [address] [place]. Notices he needs more intense movement to bring BG down. Self-Monitoring Blood Glucose: Checking FBG and reports ranges of 141-181 mg/dl. Previous visit CGM: Time in range <70% in goal. 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 Provided appropriate educational handouts. Discussed the following topics: Blood sugar trends Strategies for increasing veggies Ways to reduce CHO portions and still enjoy foods he likes OTC options for CGM Created SMART goals for patient self-care and success. Goals: Use a smaller cup for ice cream- not met Check FBG and dinner pc- met Aim for 30-45g CHO per meal- in progress Bring BG next visit- new Try smaller cup for ice cream- continue Try 12oz mocha- new Look into OTC CGM options- new Add side salad on pasta night- new Follow-up: GAEL ROMAN follow-up in 3-4 weeks Cindy Cobos RDN, JESSIE Certified Diabetes Care and Displayer Merchandise P: [phone] Thank you for this referral
== END ==
PROVIDERS: PCP Student in an Organized Health Care Education/Training Program; Referring Provider Student in an Organized Health Care Education/Training Program
DX: E11.9 Type 2 diabetes mellitus without complications (principal); Z71.3 Dietary counseling and surveillance
CPT/HCPCS: 97803

== ENCOUNTER → 2024-08-28 | Outpatient (CLI) | payer OTHER, SELFPAY | PROVIDERS: PCP Student in an Organized Health Care Education/Training Program; Referring Provider Internal Medicine; Visit Provider Internal Medicine | DX: Z23 Encounter for immunization (principal) | CPT/HCPCS: 90471; 90662 ==

== ENCOUNTER → 2024-09-02 10:55 | Outpatient (CLI) | payer OTHER, SELFPAY ==
--- NOTE | 2024-09-02 11:01 | DIAB.MNTFU ---
Follow-up Diabetes Medical Nutrition Therapy Assessment Name: Jason Lopes Date: 09/02/24 Time: 11-1150a Dx: Type II Diabetes Provider: Jarred/Cecilio Jason presents for follow-up DM visit. Due for HgA1c. Plans to get labs done in September. Reports efforts to reduce sugar intake. Working on setting a menu at home with . Seems to be helping. Reduced eating otu since being settled in new home. Continues 16oz mocha without whip, has tried 12oz a fe times. Wants to get a set of hand weights Has resistance bands at home Veggies most nights Choosing smaller mug for ice cream now. Tried to get OTC CGM but difficulty logging in. Diet Recall: B: pastry with wolof yogurt OR breakfast sandwich L : Top Ramen OR seasfood salad cheese sandwich D: protein, veggie, starch OR pasta and protein sn: 1 mug of ice cream Anthropometrics: Wt: 165.1# reported personal goal: 160# Physical Activity: States he started cardiac rehab x 3 days per week. Walking daily after dinner. 4500 [place] [address] [place]. Notices he needs more intense movement to bring BG down. Self-Monitoring Blood Glucose: Checking FBG and reports ranges of 141-180 mg/d continued, though did have a 139mg/dl today. Discussed potential for increased DM medication given elevated FBG. Reports potential for senait phenomenon when checking HS and FBG and having lower HS reading. States he is pretty opposed to additional Dm meds, wants to manage this with lifestyle. Reports large Metformin pills, but that they are also 500 mg doses. Previous visit CGM: Time in range <70% in goal. 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 Provided appropriate educational handouts. Discussed the following topics: Blood sugar trends Strategies for increasing veggies Physical activity plan and strategies Pairing CHO and protein Medication management: checking rx for pill dose, senait phenomenon and potential for needing medication management for this OTC options for CGM and helped troubleshoot Stelo log-in Created SMART goals for patient self-care and success. Goals: Use a smaller cup for ice cream- met Bring BG next visit- met Try smaller cup for ice cream- met Try 12oz mocha- met Look into OTC CGM options- met Add side salad on pasta night- in progress Get a set of hand weights- new Add pro to ramen- new Double check Metformin dose- new Follow-up: GAEL ROMAN follow-up in 3-4 weeks Cindy Cobos RDN, JESSIE Certified Diabetes Care and Software Engineering Associate Manager P: [phone] Thank you for this referral
== END ==
PROVIDERS: PCP Student in an Organized Health Care Education/Training Program; Referring Provider Student in an Organized Health Care Education/Training Program
DX: E11.9 Type 2 diabetes mellitus without complications (principal); Z79.84 Long term (current) use of oral hypoglycemic drugs; Z71.3 Dietary counseling and surveillance
CPT/HCPCS: 97803

== ENCOUNTER → 2024-09-11 07:54 | Outpatient (CLI) | payer OTHER, SELFPAY ==
[2024-09-11 08:36] LABS: Add Manual Diff / Slide Review NO; Basophils Absolute Auto 0 /uL (0-100); Basophils Percent Auto 0.4 % (0-2); Eosinophils Absolute Auto 100 /uL (0-450); Eosinophils Percent Auto 1.1 % (2-4); Hematocrit 40.8 % (41-53); Lymphocytes Absolute Auto 1700 /uL (1100-4500); Lymphocytes Percent Auto 30.1 % (25-40); Mean Corpuscular HGB Conc 34.3 % (30-36); Mean Corpuscular Hemoglobin 29.8 PG (26-34); Mean Corpuscular Volume 86.8 fL (80-100); Monocytes Absolute Auto 1200 /uL (0-900); Monocytes Percent Auto 21.4 % (3-14); Neutrophils Absolute Auto 2700 /uL (1500-7000); Platelet Count 152 X10^3/uL (150-400); Red Blood Cell Count 4.71 X10^6/uL (4.5-5.9); Red Cell Distribution Width 14.1 % (11.6-14.8); White Blood Cell Count 5.7 X10^3/uL (4.5-11.0)
[2024-09-11 08:40] LABS: Hemoglobin A1C% w Est Avg Glu 8.2 % (4.0-6.0)
[2024-09-11 08:56] LABS: Alanine Aminotransferase 30 IU/L (<50); Albumin 4.5 g/dL (3.5-5.0); Albumin Globulin Ratio 1.6 (1.0-2.8); Alkaline Phosphatase 139 U/L (38-126); Aspartate Aminotransferase 23 IU/L (17-59); BUN Creatinine Ratio 22.9 (6-22); Bilirubin Total 0.8 mg/dL (0.2-1.3); Blood Urea Nitrogen 19 mg/dL (9-20); Carbon Dioxide 26 mmol/L (22-32); Chloride 103 mmol/L (98-107); Cholesterol 106 mg/dL (140-199); Estimated Glomerular Filt Rate > 60 mL/min (>60); Globulin 2.8 g/dL (1.7-4.1); Glucose 170 mg/dL (80-110); HDL Cholesterol 35 mg/dL (40-60); HEMOLYSIS < 15 (0-50); LDL Cholesterol Calculated 44 mg/dL (<100); Potassium 4.5 mmol/L (3.4-5.1); Sodium 138 mmol/L (137-145); Total Protein 7.3 g/dL (6.3-8.2); Triglycerides 137 mg/dL (35-150)
[2024-09-11 08:59] LABS: Creatinine Urine Random 217.45 mg/dL
[2024-09-11 09:02] LABS: Microalbumin Urine Random 14.9 mg/dL (0-1.6)
== END ==
PROVIDERS: PCP Student in an Organized Health Care Education/Training Program; Referring Provider Student in an Organized Health Care Education/Training Program; Visit Provider Student in an Organized Health Care Education/Training Program
DX: D69.6 Thrombocytopenia, unspecified (principal); E11.9 Type 2 diabetes mellitus without complications; I50.22 Chronic systolic (congestive) heart failure
CPT/HCPCS: 36415; 80053; 80061; 82043; 82570; 83036; 85025

== ENCOUNTER 2024-09-24 12:30 | Outpatient (RCR) | payer OTHER, SELFPAY | END 2024-09-24 14:30 | LOC: CAR 12:30 | PROVIDERS: PCP Student in an Organized Health Care Education/Training Program; Referring Provider Surgery; Visit Provider Surgery | DX: Z95.1 Presence of aortocoronary bypass graft (principal); I48.91 Unspecified atrial fibrillation | CPT/HCPCS: 93798 ==

== ENCOUNTER → 2024-09-30 12:38 | Outpatient (CLI) | payer OTHER, SELFPAY ==
--- NOTE | 2024-09-30 12:59 | DIAB.FU ---
Follow-up Diabetes Education Assessment Name: Jason Lopes Date: 09/30/24 Time: 1-2p Dx: Type II Diabetes Jason presents for follow-up DM visit. Reduced portion sizes. Using OTC CGM. Has meal plan for meat and adding salads with his per report. Still having 16oz mochas, which he report will often bring BG to 180mg/dl. Notices BG will reduce with exercise. Has lost 2 in ab area since starting cardio rehab. Plans to start Jardiance. Recent hgA1c of 8.2%, up from 7.7% in 06/2024. Attributes this higher lab value to increased sedentary time and increased kcal intake after surgery. Recent BG show promise in reduced labs with recent TIR often 65-85%. Provider asked him to start Jardiance at 10mg x 1 month and increase to 25mg thereafter. Jason is hopeful that the 10mg may be enough to keep BG in goal. Anthropometrics: Wt: 163.8# reported 165.1# reported last visit personal goal: 160# Physical Activity: Finished cardio rehab. Doing home exercises from the program. Walking daily BID with , aims for everyday. 1688-0318 steps per day. Planning on using cardio rehab gym more with changing weather. Self-Monitoring Blood Glucose: Checking FBG and reports values often 140mg/dl +/-. Reports CGM FBG are often 120-140mg/dl. Using OTC Stelo CGM. Improved TIR since last CGM wear. 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 Provided appropriate educational handouts. Discussed the following topics: Blood sugar trends Physical activity plan and progress Reducing portions for sweetened coffee Jardiance: SE and benefits and action, hydration recs Created SMART goals for patient self-care and success. Goals: Add side salad on pasta night- met Get a set of hand weights- met Add pro to ramen- met Double check Metformin dose- met Stay hydrated- new Start 10mg Jardiance- new Try 12 oz mochas- new Follow-up: GAEL ROMAN follow-up in 3-4 weeks Cindy Cobos RDN, JESSIE Certified Diabetes Care and Television Schedule Coordinator P: [phone] Thank you for this referral
== END ==
LOC: DIET 12:38
PROVIDERS: PCP Student in an Organized Health Care Education/Training Program; Referring Provider Student in an Organized Health Care Education/Training Program
DX: E11.9 Type 2 diabetes mellitus without complications (principal); Z79.84 Long term (current) use of oral hypoglycemic drugs; Z71.3 Dietary counseling and surveillance
CPT/HCPCS: G0108

== ENCOUNTER → 2024-11-06 12:41 | Outpatient (CLI) | payer OTHER, SELFPAY ==
--- NOTE | 2024-11-25 16:36 | DIAB.MNTFU ---
Follow-up Diabetes Medical Nutrition Therapy Assessment Name: Jason Lopes Date: 11/06/24 Time: 1-2p Dx: Type II Diabetes Jason presents for follow-up DM visit. Endorses eating less or smaller portions. Feeling better overall. Reduced mocha size to 12oz. 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 Bringing food to work, ie protein bar, bagel and cream cheese or plaine, apple and leftovers Recently started 25mg Jardiance and has questions about action. Endorses clear urine, indicating hydration. Reports 48oz+ water + 0-4c coffee per day. No longer grazing. Snacks reported include, carrots, apples, uzbek yogurt, avoiding cookies and bread. States 220-250mg/dl feels nausea. Reduced eating out. Anthropometrics: wt all reported Wt: 161.8# 163.8# 09/2024 165.1# 08/2024 personal goal: 160# Physical Activity: walking 2mi per day with . Endorses usual steps of 3766-9051, high of 8000 steps per day. 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 Provided appropriate educational handouts. Discussed the following topics: Blood sugar trends Physical activity plan and progress Snack ideas Jardiance: SE and benefits and action, hydration recs Eating options at work Carb portions Created SMART goals for patient self-care and success. Goals: Stay hydrated- met Start 10mg Jardiance- met Try 12 oz mochas- met Add protein to bagel- new Try a new snack idea- new Aim for 2L fluids daily- new Follow-up: GAEL ROMAN follow-up in 3-4 weeks Cindy Cobos RDN, JESSIE Certified Diabetes Care and Table Top Tile Setter P: [phone] Thank you for this referral
== END ==
LOC: DIET 12:43
PROVIDERS: Referring Provider Student in an Organized Health Care Education/Training Program
DX: E11.9 Type 2 diabetes mellitus without complications (principal); Z71.3 Dietary counseling and surveillance; Z79.85 Long-term (current) use of injectable non-insulin antidiabetic drugs
CPT/HCPCS: 97803

== ENCOUNTER → 2024-12-12 09:52 | Outpatient (CLI) | payer OTHER, SELFPAY ==
[2024-12-12 11:00] LABS: Basophils Absolute Auto 0 /uL (0-100); Basophils Percent Auto 0.4 % (0-2); Eosinophils Absolute Auto 0 /uL (0-450); Eosinophils Percent Auto 0.6 % (2-4); Hematocrit 42.1 % (41-53); Hemoglobin 14.2 g/dL (13.5-17.5); Lymphocytes Absolute Auto 1500 /uL (1100-4500); Lymphocytes Percent Auto 32.8 % (25-40); Mean Corpuscular HGB Conc 33.7 % (30-36); Mean Corpuscular Hemoglobin 29.6 PG (26-34); Monocytes Absolute Auto 1100 /uL (0-900); Monocytes Percent Auto 22.3 % (3-14); Neutrophils Absolute Auto 2100 /uL (1500-7000); Neutrophils Percent Auto 43.9 % (50-75); Platelet Count 131 X10^3/uL (150-400); Red Blood Cell Count 4.79 X10^6/uL (4.5-5.9); White Blood Cell Count 4.7 X10^3/uL (4.5-11.0)
[2024-12-12 11:02] LABS: Hemoglobin A1C% w Est Avg Glu 6.7 % (4.0-6.0)
[2024-12-12 11:03] LABS: Add Manual Diff / Slide Review SLIDE REVIEW
[2024-12-12 11:06] LABS: Alanine Aminotransferase 36 IU/L (<50); Albumin 4.5 g/dL (3.5-5.0); Albumin Globulin Ratio 1.6 (1.0-2.8); Alkaline Phosphatase 124 U/L (38-126); Aspartate Aminotransferase 28 IU/L (17-59); BUN Creatinine Ratio 26.6 (6-22); Bilirubin Total 0.7 mg/dL (0.2-1.3); Blood Urea Nitrogen 21 mg/dL (9-20); Calcium 9.7 mg/dL (8.4-10.2); Carbon Dioxide 27 mmol/L (22-32); Chloride 101 mmol/L (98-107); Estimated Glomerular Filt Rate > 60 mL/min (>60); Globulin 2.8 g/dL (1.7-4.1); Glucose 160 mg/dL (80-110); HEMOLYSIS < 15 (0-50); Potassium 4.5 mmol/L (3.4-5.1); Sodium 137 mmol/L (137-145); Total Protein 7.3 g/dL (6.3-8.2)
[2024-12-12 11:07] LABS: Creatinine Urine Random 57.99 mg/dL
[2024-12-12 11:24] LABS: RBC Morphology Norm
[2024-12-12 11:25] LABS: Platelet Estimate Decr
== END ==
DX: D69.6 Thrombocytopenia, unspecified (principal); E11.9 Type 2 diabetes mellitus without complications
CPT/HCPCS: 36415; 80053; 82043; 82570; 83036; 85025

== ENCOUNTER → 2024-12-25 10:38 | Outpatient (CLI) | payer OTHER, SELFPAY ==
--- NOTE | 2024-12-25 14:37 | DIAB.MNTFU ---
Follow-up Diabetes Medical Nutrition Therapy Assessment Name: Jason Lopes Date: 12/25/24 Time: 885 Dx: Type II Diabetes Jason presents for follow-up DM visit. Great hgA1c of 6.7% Reports continued nutrition changes. Wanting some snack ideas for after work. Seeing high BG when eating ramen and ice cream after work. Not sleeping well, work stress? having some false lows with CGM sensor Feels he might want to lose another 4-5# Taking Metformin 500mg AM and 1000mg PM. He is wondering if he should increase to max dose to help reduce some of the elevations just over 180mg/dl, which seems reasonable. Has new PCP on 12/31. Anthropometrics: wt all reported Wt: 160.2# 12/2024 161.8# 163.8# 09/2024 165.1# 08/2024 personal goal: 160# Physical Activity: walking 2mi per day with . Endorses usual steps of 5893-9816, up from last visit reported 3414-1241 steps per day. Self-Monitoring Blood Glucose: using OTC CGM indicating continued at goal time in range. Waking up in goal. Some elevations after meals/snacks, but overall good management of BG. 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 Provided appropriate educational handouts. Discussed the following topics: Blood sugar trends Physical activity plan and progress Snack ideas / list Weight loss v building LBM HgA1c improvement Metformin dosing Carb portions Created SMART goals for patient self-care and success. Goals: Add protein to bagel- not discussed Try a new snack idea- in progress Aim for 2L fluids daily- improved Keep walking- new Discuss Metformin dose with PCP- new Consider starting resistance bands- new Follow-up: GAEL ROMAN follow-up in 4 weeks Cindy Cobos RDN, JESSIE Certified Diabetes Care and Rn Embedded P: [phone] Thank you for this referral
== END ==
PROVIDERS: PCP Internal Medicine; Referring Provider Student in an Organized Health Care Education/Training Program
DX: E11.65 Type 2 diabetes mellitus with hyperglycemia (principal); Z71.3 Dietary counseling and surveillance; Z79.84 Long term (current) use of oral hypoglycemic drugs
CPT/HCPCS: 97803

== ENCOUNTER → 2025-01-29 12:42 | Outpatient (CLI) | payer OTHER, SELFPAY ==
--- NOTE | 2025-01-29 13:10 | DIAB.MNTFU ---
Follow-up Diabetes Medical Nutrition Therapy Assessment Name: Jason Lopes Date: 01/29/25 Time: 1-2p Dx: Type II Diabetes Jason presents for follow-up DM visit. Feels that diet has been less on track Trying to use snack list Trying to eat q 3-4 hours No time for breakfast on work days. Current breakfasts: toast (ww), pb, jam and a yogurt (chobani) or an orange Raisin bagel apple and pb Fried egg sandwich Using CGM to make better nutrition choices. Wants a review of CHO foods. Reports discussion with new PCP and they decided not to max out Metformin, ie adding 500mg. Anthropometrics: wt all reported Wt: 160.2# 12/2024 161.8# 163.8# 09/2024 165.1# 08/2024 personal goal: 160# Physical Activity: walking 2mi per day with . Reports about 6500 steps per day. Has wts and resistance bands at home, but not started yet. Plans to be more active as weather changes. Self-Monitoring Blood Glucose: using OTC CGM indicating continued at goal time in range. Waking up in goal. Some elevations after meals/snacks, but overall good management of BG. Time in range is lower than last visit. Attribute this to recent diet choices and stress. 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 Provided appropriate educational handouts. Discussed the following topics: Blood sugar trends Physical activity plan and progress Breakfast ideas Protein and satiety DM medications Macronutrient food types Carb portions Created SMART goals for patient self-care and success. Goals: Keep walking- met Discuss Metformin dose with PCP- met Consider starting resistance bands- in progress Make some HB eggs for breakfast- new Ask for Less pumps in Mocha- new Follow-up: GAEL ROMAN follow-up in 4 weeks Cindy Cobos RDN, JESSIE Certified Diabetes Care and Director Community Health Nursing P: [phone] Thank you for this referral
== END ==
PROVIDERS: PCP Internal Medicine; Referring Provider Internal Medicine
DX: E11.9 Type 2 diabetes mellitus without complications (principal); Z71.3 Dietary counseling and surveillance; Z79.84 Long term (current) use of oral hypoglycemic drugs
CPT/HCPCS: 97803

== ENCOUNTER → 2025-03-05 09:43 | Outpatient (CLI) | payer OTHER, SELFPAY ==
--- NOTE | 2025-03-05 09:46 | DIAB.MNTFU ---
Follow-up Diabetes Medical Nutrition Therapy Assessment Name: Jason Lopes Date: 03/05/25 Time: 10- Dx: Type II Diabetes Jason presents for follow-up DM visit. Anthropometrics: wt all reported Wt: 160.2# 12/2024 161.8# 163.8# 09/2024 165.1# 08/2024 personal goal: 160# Physical Activity: walking 2mi per day with . Reports about 6500 steps per day. Has wts and resistance bands at home, but not started yet. Plans to be more active as weather changes. Self-Monitoring Blood Glucose: using OTC CGM indicating continued at goal time in range.Increased time in range since last visit. Reduced time >250mg/dl. 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 Provided appropriate educational handouts. Discussed the following topics: Blood sugar trends Physical activity plan and progress Breakfast ideas Protein and satiety DM medications Macronutrient food types Carb portions Created SMART goals for patient self-care and success. Goals: Make some HB eggs for breakfast- new Ask for Less pumps in Mocha- new - new Follow-up: GAEL ROMAN follow-up in Cindy Cobos RDN, JESSIE Certified Diabetes Care and [place] P: [phone] Thank you for this referral
--- NOTE | 2025-03-05 10:00 | DIAB.MNTFU ---
Follow-up Diabetes Medical Nutrition Therapy Assessment Name: Jason Lopes Date: 03/05/25 Time: 10a Dx: Type II Diabetes Jason presents for follow-up DM visit. Reports overall things are going well. Recent surgery for superficial skin cancer. will be working now /Saturday until 7p. So, he will be responsible for dinners for himself those nights. Often chooses pre made dinners from the [employer], some do not have veggies. considering Mediterranean food options that night since does not prefer them and he will be eating on his own. States he wants to know how to eat for more energy. Needs a knee replacement eventually per report. Reduced mocha sugar to 1 pump and BG seem to be improved. Overall endorses eating smaller portions. Added protein with HB eggs. Diet recall: B: eggs, potatoes, veggie, yogurt OR HB egg with yogurt OR occasional pastry L: noodles and peas sn: carrots and hummus Dinner: protein, start, +/- veggies Sn: ice cream OR carrots hummus OR apple pb Anthropometrics: wt all reported Wt: 158-160# 02/2025 160.2# 12/2024 161.8# 163.8# 09/2024 165.1# 08/2024 personal goal: 160# Physical Activity: walking 2-4mi per day with .Increased activity with hiking [place]. Self-Monitoring Blood Glucose: using OTC CGM indicating continued at goal time in range.Increased time in range since last visit. Reduced time >250mg/dl. 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 Provided appropriate educational handouts. Discussed the following topics: Blood sugar trends Physical activity plan and progress Dinner ideas Strategies for adding veggies Nutrition for healing: protein, vitamin c, hydration Nutrition for energy: macro pairing, meal timing, complex CHO, B12 foods Easy Mediterranean food options Created SMART goals for patient self-care and success. Goals: Make some HB eggs for breakfast- met Ask for Less pumps in Mocha- met eat veggies at dinner on Thur/Fri- new Consider a Mediterranean meal option 1x per week- new Follow-up: GAEL ROMAN follow-up in 1 month. Offered further follow-up, however Jason would like to continue monthly check-ins at this time to stay on track. Cindy Cobos RDN, CDCES Certified Diabetes Care and Chronic Specialist P: [phone] Thank you for this referral
== END ==
LOC: DIET 09:43
PROVIDERS: Family Provider Internal Medicine; PCP Internal Medicine; Referring Provider Internal Medicine
DX: E11.9 Type 2 diabetes mellitus without complications (principal); Z79.84 Long term (current) use of oral hypoglycemic drugs; Z71.3 Dietary counseling and surveillance
CPT/HCPCS: 97803

== ENCOUNTER → 2025-04-09 09:38 | Outpatient (CLI) | payer OTHER, SELFPAY ==
--- NOTE | 2025-04-09 10:01 | DIAB.MNTFU ---
Follow-up Diabetes Medical Nutrition Therapy Assessment Name: Jason Lopes Date: 04/09/25 Time: -7469d Dx: Type II Diabetes Jason presents for follow-up DM visit. working three days per week. Sometimes eating pre made meals, which don't seem to raise BG much. Adding veggies to meals. Endorses stress at work, causing some stress eating at night, ie pizza and ice cream. Keeping mochas to 1 pump, and seem to be ok for BG. Eating more carrots and celery with hummus. Less noodles lately. is trying to lose wt. Clarity not connected, needs to log in. Sees PCP April. Plans for new lab work. Last Diet recall: B: eggs, potatoes, veggie, yogurt OR HB egg with yogurt OR occasional pastry L: noodles and peas sn: carrots and hummus Dinner: protein, start, +/- veggies Sn: ice cream OR carrots hummus OR apple pb Anthropometrics: wt all reported Wt: 159.1# 03/2025 158-160# 02/2025 160.2# 12/2024 161.8# 163.8# 09/2024 165.1# 08/2024 personal goal: 160# Physical Activity: walking 2-3mi per day with . Doing yardwork lately. Self-Monitoring Blood Glucose: using OTC CGM indicating continued at goal time in range.Increased time in range since last visit. 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 Provided appropriate educational handouts. Discussed the following topics: Blood sugar trends Physical activity plan and progress Stress management Troubleshooting CGM acct and sign in for reports Veggie intake strategies BG and HGA1c goals Created SMART goals for patient self-care and success. Goals: eat veggies at dinner on Thur/Fri- met Consider a Mediterranean meal option 1x per week- d/c Troubleshoot login at home for Clarity- new Work on stress eating, as discussed- new Get new labs- new Follow-up: GAEL ROMAN follow-up in 4-6 weeks per pt request Cindy Cobos RDN, JESSIE Certified Diabetes Care and Motor Patrol Operator P: [phone] Thank you for this referral
== END ==
PROVIDERS: Family Provider Internal Medicine; PCP Internal Medicine; Referring Provider Internal Medicine
DX: E11.9 Type 2 diabetes mellitus without complications (principal); Z79.84 Long term (current) use of oral hypoglycemic drugs; Z71.3 Dietary counseling and surveillance
CPT/HCPCS: 97803

== ENCOUNTER → 2025-04-26 09:31 | Outpatient (CLI) | payer OTHER, SELFPAY ==
[2025-04-26 10:59] LABS: Cholesterol 110 mg/dL (140-199); HDL Cholesterol 35 mg/dL (40-60); LDL Cholesterol Calculated 48 mg/dL (<100); Triglycerides 135 mg/dL (35-150)
[2025-04-26 11:33] LABS: Creatinine Urine Random 69.91 mg/dL; Protein (Total) Urine Random 15 mg/dL (0-12); Protein Creatinine Ratio Urine 0.21 GRAM/24H
== END ==
PROVIDERS: Family Provider Internal Medicine; PCP Internal Medicine; Referring Provider Internal Medicine; Visit Provider Internal Medicine
DX: E11.9 Type 2 diabetes mellitus without complications (principal); E78.2 Mixed hyperlipidemia
CPT/HCPCS: 36415; 80061; 82570; 84156

== ENCOUNTER → 2025-06-18 07:37 | Outpatient (CLI) | payer OTHER, SELFPAY ==
--- NOTE | 2025-06-18 07:55 | DIAB.MNTFU ---
Follow-up Diabetes Medical Nutrition Therapy Assessment Name: Jason Lopes Date: 06/18/25 Time: 8-9a Dx: Type II Diabetes Jason presents for follow-up DM visit. Reports some stress with work and increased exercise with PT to prepare for knee replacement. States he notices feeling overly full at times at night. Evening shows a pattern of higher BG per CGM and higher CHO intake reported. Endorses ice cream 5-7+ x per week, dinner and sometimes at lunch. Endorses feeling it is a habit to eat noodles and ice cream at night, especially when coming home from work. Less freq eating occurrences on work days reported. On days off tries for small freq meals/snacks Wants more info on snack options Plans for total knee sx, unclear of date. Needs hgA1c <7.2%. Last lab in 04/2025 did not include hgA1c. Previous 12/2024 labs indicated hgA1c of 6.7% in goal. Anthropometrics: wt all reported Wt: 162# 06/2025 159.1# 03/2025 158-160# 02/2025 160.2# 12/2024 161.8# 163.8# 09/2024 165.1# 08/2024 personal goal: 160# Physical Activity: walking 2mi per day with . Plus activity with work. PT twice per week. Self-Monitoring Blood Glucose: using OTC CGM indicating continued at goal time in range.Increased time in range since last visit. Elevations mostly after lunch and more freq after dinner. Today TIR: 1% very high 21% high 78% in range 0% low 0% very low avg Bmg/dl GMI: 7% std dev: 35mg/dl variation: 23.1% Last TIR: % very high % high % in range % low % very low avg BG: mg/dl GMI: std dev: mg/dl variation: % Diabetes Medications: 500mg Metformin AM 1000mg Metformin PM 25mg Jardiance Pertinent Labs: HgA1c: 7.3% 03/2024 8.2% 09/2024 6.7% 12/2024 Past Medical History: (Last Reviewed 04/15/24 @ 05:27 by Drew Enriquez DO) Anticoagulated on Coumadin Atrial fibrillation Essential hypertension GERD (gastroesophageal reflux disease) History of Dalton's palsy (~1990) Right side, with mild residual effectsHistory of DVT in adulthood Hyperlipidemia Obstructive sleep apnea, adult Pacemaker Bi-ventricular pacerType 2 diabetes mellitus Nutrition Rx: Carbs meals: 30-45g snacks: 15-30g Nutrition Diagnosis: - Excessive CHO intake r/t p stress eating and routine in evening aeb pt report and increased BG - new Intervention: This participant was very receptive. Provided appropriate educational handouts. Discussed the following topics: Blood sugar trends Physical activity plan and progress Stress management Strategies for reducing CHO at night Portion recs Snack ADA resources Hunger/fullness and minful eating BG and HGA1c goals Created SMART goals for patient self-care and success. Goals: Troubleshoot login at home for Clarity- not discussed Work on stress eating, as discussed- continue Get new labs- in progress Get new hgA1c- new Tune into hunger/fullness- new Try a different lower CHO dinner- new Follow-up: [facility]AN follow-up recommended. Pt plans to call for f/u appt. Cindy Cobos RDN, [facility] Certified Diabetes Care and Page Designer P: [phone] Thank you for this referral
== END ==
PROVIDERS: Family Provider Internal Medicine; PCP Internal Medicine; Referring Provider Internal Medicine
DX: E11.9 Type 2 diabetes mellitus without complications (principal); Z79.84 Long term (current) use of oral hypoglycemic drugs; Z71.3 Dietary counseling and surveillance
CPT/HCPCS: 97803

== ENCOUNTER → 2025-08-13 12:46 | Outpatient (CLI) | payer OTHER, SELFPAY ==
--- NOTE | 2025-08-13 12:57 | DIAB.MNTFU ---
Follow-up Diabetes Medical Nutrition Therapy Assessment Name: Jason Lopes Date: 08/13/25 Time: 1-2p Dx: Type II Diabetes Jason presents for follow-up DM visit. Plans to get knee replacement in October Stage of change for reducing CHO intake between contemplative and action. Has reduced intake at dinners at home. Most meals seem moderate to low in CHO. Endorses ice cream 4x per week with 2% to whole milk on top. Open to reducing milk fat type. Stage of change is contemplative to reducing freq of intake at this time. Overall, personal goal of d/c ice cream intake. Continues with lower CHO mocha. Snacks include: protein bar, pretzels and cheese or fruit. Has questions about fruit and impact on BG. Less noodles lately. 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 Using DM [employer] resource. Listening to hunger/fullness more. Wants to lose wt. Eating q 3 hours is harder on work days. hgA1c meeting goals for ortho per report of <7.5% with new lab of 7.1%, slightly up from previous 6.7% Diet recall: B: 2 toast PBJ +/- egg L: ham sandwich or leftovers D: shrimp spinach dish OR potatoes with chx and broccoli wt all reported Wt:162.8# 162# 06/2025 159.1# 03/2025 158-160# 02/2025 160.2# 12/2024 161.8# 163.8# 09/2024 165.1# 08/2024 personal goal: 160# Physical Activity: 15-30min walks daily with . Approx 6000 steps/day. PT twice per week. Self-Monitoring Blood Glucose: using OTC CGM indicating increase in hyperglycemia since last visit. Elevations mostly meals. Today TIR: 2% very high 32% high 66% in range 0% low 0% very low avg Bmg/dl GMI: 7.3% std dev: 39mg/dl variation: 23.5% Last TIR: % very high 1% very high 21% high 78% in range 0% low 0% very low avg Bmg/dl GMI: 7% std dev: 35mg/dl variation: 23.1% Diabetes Medications: 500mg Metformin AM 1000mg Metformin PM 25mg Jardiance Pertinent Labs: HgA1c: 7.3% 03/2024 8.2% 09/2024 6.7% 12/2024 7.1% 06/2025 Past Medical History: (Last Reviewed 04/15/24 @ 05:27 by Drew Enriquez DO) Anticoagulated on Coumadin Atrial fibrillation Essential hypertension GERD (gastroesophageal reflux disease) History of Dalton's palsy (~1990) Right side, with mild residual effectsHistory of DVT in adulthood Hyperlipidemia Obstructive sleep apnea, adult Pacemaker Bi-ventricular pacerType 2 diabetes mellitus Nutrition Rx: Carbs meals: 30-45g snacks: 15-30g Nutrition Diagnosis: - Excessive CHO intake r/t p stress eating and routine in evening aeb pt report and increased BG - improved - Predicted excessive CHO intake r/t stage of change aeb pt report and diet recall and elevated BG- new Intervention: This participant was very receptive. Provided appropriate educational handouts. Discussed the following topics: Blood sugar trends Physical activity plan and progress Strategies for reducing CHO at breakfast Potential for reducing ice cream intake Fruits that have more fiber and less impact on BG SE and hydration recs for SGLT2i Shift work and DM. Encouraged small freq meals and avoiding long periods of fasting Created SMART goals for patient self-care and success. Goals: Get new hgA1c- met Tune into hunger/fullness- met Try a different lower CHO dinner- met Reduce to 1 PBJ for breakfast- new Add protein to breakfast consistently, ie egg- new Eat berries - new Switch from higher fat milk on ice cream to 0-1%- new Follow-up: GAEL ROMAN follow-up recommended. Pt plans to call for f/u appt. Cindy Cobos RDN, [facility] Certified Diabetes Care and Scientist Immunology P: [phone] Thank you for this referral
== END ==
LOC: DIET 12:46
PROVIDERS: Family Provider Internal Medicine; PCP Internal Medicine; Referring Provider Internal Medicine
DX: E11.65 Type 2 diabetes mellitus with hyperglycemia (principal); Z71.3 Dietary counseling and surveillance; Z79.84 Long term (current) use of oral hypoglycemic drugs
CPT/HCPCS: 97803

== ENCOUNTER → 2025-09-17 08:48 | Outpatient (CLI) | payer OTHER, SELFPAY ==
--- NOTE | 2025-10-22 10:50 | DIAB.MNTFU ---
Follow-up Diabetes Medical Nutrition Therapy Assessment Name: Jason Lopes Date: 09/17/25 Time: 90a Dx: Type II Diabetes Jason presents for follow-up DM visit. Wants ideas for breakfast. States in general he is back to some old habits, ie increase in ice cream intake, eating more comfort foods/fried foods. using DM cookbook and soup magazine for ideas for meals. Was ill end of August, BG may have been impacted. Feeling better now. Issues with CGM customer service reported. Knee surger moved to November Current breakfasts: 2 toast with banana - no protein fried egg sandwich with ham or chx egg with yogurt wt all reported Wt: 163# 09/2025 162.8# 08/2025 162# 06/2025 159.1# 03/2025 158-160# 02/2025 160.2# 12/2024 161.8# 163.8# 09/2024 165.1# 08/2024 personal goal: 160# Physical Activity: Interested in picking up weights, has a few at home. Wants to set up garage for winter activity Self-Monitoring Blood Glucose: using OTC CGM indicating increase in hyperglycemia since last visit. Elevations likely r/t change in eating and illness recently. Today TIR: 10% very high 38% high 52% in range 0% low 0% very low avg Bmg/dl GMI: 7.8% std dev: 45 mg/dl variation: 24.3% Last TIR: 2% very high 32% high 66% in range 0% low 0% very low avg Bmg/dl GMI: 7.3% std dev: 39mg/dl variation: 23.5% Diabetes Medications: 500mg Metformin AM 1000mg Metformin PM 25mg Jardiance Pertinent Labs: HgA1c: 7.3% 03/2024 8.2% 09/2024 6.7% 12/2024 7.1% 06/2025 Past Medical History: (Last Reviewed 04/15/24 @ 05:27 by Drew Enriquez DO) Anticoagulated on Coumadin Atrial fibrillation Essential hypertension GERD (gastroesophageal reflux disease) History of Dalton's palsy (~1990) Right side, with mild residual effectsHistory of DVT in adulthood Hyperlipidemia Obstructive sleep apnea, adult Pacemaker Bi-ventricular pacerType 2 diabetes mellitus Nutrition Rx: Carbs meals: 30-45g snacks: 15-30g Nutrition Diagnosis: - Excessive CHO intake r/t increased sweets and fried foods aeb pt report and increased BG - new Intervention: This participant was very receptive. Provided appropriate educational handouts. Discussed the following topics: Blood sugar trends Physical activity plan and progress Strategies for reducing CHO at breakfast Potential for reducing ice cream intake Breakfast ideas balanced with macronutrients Other resources for recipes Created SMART goals for patient self-care and success. Goals: Add protein to breakfast consistently, ie egg- improved/in progress Eat berries - not met Switch from higher fat milk on ice cream to 0-1%- met Pre make eggs- new Check out DM magazines- new try frozen berries- new Follow-up: GAEL ROMAN follow-up in 4-6 weeks Cindy Cobos RDN, JESSIE Certified Diabetes Care and Oracle Applications Developer P: [phone] Thank you for this referral
== END ==
PROVIDERS: Family Provider Internal Medicine; PCP Internal Medicine; Referring Provider Internal Medicine
DX: E11.65 Type 2 diabetes mellitus with hyperglycemia (principal); Z71.3 Dietary counseling and surveillance; Z79.84 Long term (current) use of oral hypoglycemic drugs
CPT/HCPCS: 97803

== ENCOUNTER → 2025-10-29 09:11 | Outpatient (CLI) | payer OTHER, SELFPAY ==
--- NOTE | 2025-10-29 09:50 | DIAB.MNTFU ---
Follow-up Diabetes Medical Nutrition Therapy Assessment Name: Jason Lopes Date: 10/29/25 Time: -3549i Dx: Type II Diabetes Jason presents for follow-up DM visit. Using Dm magazines for recipes. Pre making HB eggs. Using donovan instead of bread. Questions about how effective DM meds are over time. Seems likely that Bg are up from other months r/t reduced activity Currently on 1500mg Metformin, could chat with PCP about max dose. Reports finding sugar addicts anonymous group and asks about how food and addiction are connected. Knee surgery Dec 08. Plans to start PT again in November. Weight Hx Wt: 160# 10/2025 walk-in clinic 163# 09/2025 reported 162.8# 08/2025 reported 162# 06/2025 reported 159.1# 03/2025 reported 158-160# 02/2025 reported 160.2# 12/2024 reported 161.8# reported 163.8# 09/2024 reported 165.1# 08/2024 reported personal goal: 160# Physical Activity: Less walking with weather, but tries to walk at mall. Increased sedentary time with winter. Has hand weights and resistance bands. Self-Monitoring Blood Glucose: using OTC CGM indicating improved hyperglycemia since last visit. Today TIR: 3% very high 29% high 67% in range 0% low 1% very low avg Bmg/dl GMI: 7.2% std dev: 44 mg/dl variation: 27% Last TIR: 10% very high 38% high 52% in range 0% low 0% very low avg Bmg/dl GMI: 7.8% std dev: 45 mg/dl variation: 24.3% Diabetes Medications: 500mg Metformin AM 1000mg Metformin PM 25mg Jardiance Pertinent Labs: HgA1c: 7.3% 03/2024 8.2% 09/2024 6.7% 12/2024 7.1% 06/2025 Past Medical History: (Last Reviewed 04/15/24 @ 05:27 by Drew Enriquez DO) Anticoagulated on Coumadin Atrial fibrillation Essential hypertension GERD (gastroesophageal reflux disease) History of Dalton's palsy (~1990) Right side, with mild residual effectsHistory of DVT in adulthood Hyperlipidemia Obstructive sleep apnea, adult Pacemaker Bi-ventricular pacerType 2 diabetes mellitus Nutrition Rx: Carbs meals: 30-45g snacks: 15-30g Nutrition Diagnosis: - Excessive CHO intake r/t increased sweets and fried foods aeb pt report and increased BG - in progress/improved - Physical inactivity r/t weather impacting walking and stage of change contemplative aeb pt report - new Intervention: This participant was very receptive. Provided appropriate educational handouts. Discussed the following topics: BG trends Whole grain vs simple CHO Medication management Exercise programs and barriers during winter Food relationship with sugar Created SMART goals for patient self-care and success. Goals: Pre make eggs- met Check out DM magazines- met try frozen berries- new Check for whole wheat donovan - new Consider winter exercise program- new Get new hgA1c- new Ask about Metformin 1000mg BID- new Follow-up: GAEL ROMAN follow-up in December after knee sx Cindy Cobos RDN, [facility] Certified Diabetes Care and Bacon Skinner P: [phone] Thank you for this referral
== END ==
LOC: DIET 09:11
PROVIDERS: Family Provider Internal Medicine; PCP Internal Medicine; Referring Provider Internal Medicine
DX: E11.65 Type 2 diabetes mellitus with hyperglycemia (principal); Z71.3 Dietary counseling and surveillance; Z79.85 Long-term (current) use of injectable non-insulin antidiabetic drugs
CPT/HCPCS: 97803